=== PATIENT | female | born 1975 ===

== ENCOUNTER 2020-12-12 11:13 | Emergency (ER) | payer OTHER, SELFPAY ==
--- NOTE | ~2020-12-12 | XR_ITS ---
EXAMINATION: XR ELBOW, RIGHT CLINICAL INFORMATION: Pain. Trauma. COMPARISON: None TECHNIQUE: AP, lateral, and oblique views of the right elbow. FINDINGS: Bone alignment is normal. No fracture or dislocation is seen. There is a sclerotic density in the capitellum probably representing a bone island. Joint spaces are normal. There is no joint effusion. There is a small osteophyte at the triceps tendon insertion to the olecranon. XR/XR elbow RT min 3V IMPRESSION: No fracture or dislocation.
--- NOTE | ~2020-12-12 | US_ITS ---
EXAMINATION: US VENOUS WITH DOPPLER UPPER EXTREMITY, RIGHT CLINICAL INFORMATION: Pain and swelling x1 month. COMPARISON: None TECHNIQUE: Ultrasound of the upper extremity is performed using compression sonography and color and pulse Doppler flow with assessment of augmentation of flow. There is also imaging and Doppler assessment of the jugular and subclavian veins. Spectral analysis with color-flow imaging is performed. FINDINGS: Respiratory variation, normal compression, and augmented flow are noted throughout the upper extremity including the axillary, brachial, cubital, and radial and ulnar veins. There is normal flow in the internal jugular and subclavian veins. There is no visible deep or superficial thrombophlebitis. If the patient's symptoms progress, a followup ultrasound in 5 -7 days might be of value to exclude proximal propagation from a nonvisualized distal arm vein. US/US venous duplex UE RT IMPRESSION: No DVT demonstrated in the right arm. No abnormality seen in the areas indicated by the patient.
[2020-12-12 12:11] VITALS: BP 141/78; PULSE 90; RESP 18; TEMP 37; O2SAT 98; BMI 25.0
--- NOTE | 2020-12-12 12:37 | ED_ITS ---
HPI - Extremity Problem General Chief complaint: Extremity Injury, Upper Stated complaint: ARM INFECTION Time Seen by Provider: 12/12/20 12:36 Source: patient Mode of arrival: ambulatory Limitations: no limitations History of Present Illness HPI Narrative: Pleasant 45-year-old female presenting ambulatory via triage with history of migraine headaches, chronic gastritis, celiac disease, thyroid disease who presents ambulatory with complaint of pain to the right inner elbow/forearm area for the past month and a half states she had initial injury at work on October 19, 2019, she works at [employer]. States at that time she had the inner elbow/forearm area on a hard surface had pain and bruising there however due to the ?paperwork? she was not able to follow-up for this injury and yesterday she was helping her move something and felt more pain at the same site and has felt her arm intermittently swelling. There is no numbness or weakness in the hand. No discoloration or rash. No shoulder, neck or headache. No chest pain or shortness of breath. No lower extremity swelling. MD Complaint: extremity pain Onset (ago): month(s) Pain Consistency: intermittent Location: right Severity scale (1-10): 5 Quality: aching Radiation: distal Relieving factors: immobilization Exacerbating factors: nothing Associated symptoms: denies other symptoms Related Data Previous Rx's Medication Instructions Recorded naproxen 500 mg PO BID PRN #21 tab 12/12/20 Allergies Allergy/AdvReac Type Severity Reaction Status Date / Time gluten [GLUTEN] Allergy Unknown UNKNOWN Verified 12/12/20 12:11 Review of Systems Review of Systems: Constitutional: No Weight loss, No Fever, No Chills, No Night Sweats, No Fatigue, No Malaise ENT/Mouth: No Hearing loss, No Ear Pain, No Nasal Congestion, No Sinus Pain, No Hoarseness, No sore throat, No Rhinorrhea, No Swallowing Difficulty Eyes: No Eye Pain, No Swelling, No Redness, No Foreign Body, No Discharge, No Vision Changes Cardiovascular: No Chest Pain, No SOB, No Dyspnea on Exertion, No Orthopnea, No Edema, No Palpitations Respiratory: No Cough, No Sputum, No Wheezing, No Dyspnea Gastrointestinal: No Nausea, No Vomiting, No Diarrhea, No Constipation, No abdominal Pain, No Hematochezia, No Melena Genitourinary: No Dysuria, No Urinary Frequency, No Hematuria, states no concern for ,No Flank Pain, No Urinary Flow Changes, No Hesitancy Musculoskeletal: No joint pain, No Myalgias, No Joint Swelling, as noted per HPI Skin: No Skin Lesions, No rash Neuro: No Weakness, No Numbness, No Paresthesias, No Loss of Consciousness, No Dizziness, No Headache Psych: No Social Issues Heme/Lymph: No Bruising, No Bleeding,No Lymphadenopathy Endocrine: No Polyuria, No Polydipsia, No Temperature Intolerance Yes all other systems are reviewed and are negative Neurologic: Reports Abnormal speech present [facility] Past Medical History Medical History (Updated 12/12/20 @ 14:33 by Shahbaz Lu NP) CD (celiac disease) Gastritis Migraines Sinusitis Social History Social History Advance Directives: Yes Advance Directives Information Provided: Yes Advance Directives on File: No Physical Exam Vital Signs: Vital Signs: Last Vital Signs Temp 98.6 F 12/12/20 12:11 Pulse 90 12/12/20 12:11 Resp 18 12/12/20 12:11 BP 141/78 H 12/12/20 12:11 Pulse Ox 98 12/12/20 12:11 Body Mass Index 25.0 Reviewed Const: General: cooperative and healthy appearing; No acute distress or intoxicated appearing Nutritional Appearance: average body habitus Orientation/consciousness: patient oriented x3 HENMT: Head: Yes normal to inspection Ears: hearing grossly normal bilaterally Eyes: General: appearance normal, both eyes and all related structures Visual Sanderson: normal visual sanderson by confrontation Pupils: Equal, round and reactive pupils present Neck: Neck: Yes normal visual inspection, No no meningeal signs, No positive Brudzinski's sign, No positive Kernig's sign and No tender Thyroid: Thyroid normal Chest: Chest palpation & inspection: normal inspection of the chest Resp: Effort & Inspection: normal respiratory effort Auscultation: clear to auscultation bilaterally Cardio: Jugular venous distension: no JVD Rhythm: regular rhythm Heart sounds: S1 normal heart sound present and S2 normal heart sound present GI: Inspection: Yes normal to inspection Percussion: Yes normal to percussion Auscultation: normal bowel sounds : General: Yes no CVA tenderness Back/Spine/Pelvis: Back: no CVA tenderness Skin: General skin exam: no rashes or lesions noted Neuro: General: patient oriented x3, moves all extremities, Normal light touch and pain sensation, No no meningeal signs, no focal motor deficits, CN's II-XI intact bilaterally and deep tendon reflexes 2+ bilaterally Cranial nerves: Yes CN's II-XII intact bilaterally, Yes Facial sensation intact/muscles of mastication intact and Yes Equal, round and reactive pupils present Cognition (Neuro): normal cognition Speech: Abnormal speech present Gait exam (Neuro): Normal gait present Motor exam (neuro): 5/5 motor strength present throughout and Normal motor muscle tone present throughout Sensory Exam: Normal double simultaneous stimulation for sensation Extrem: General: Yes normal to inspection Course Course Course Narrative: She did show me a picture from initial injury on October 19 patient states there was a large bruise on the inner elbow and forearm area that resolved. In the picture there is ecchymosis area that is about 6 inches almost annular. Currently there is no bruising at the site. She has some mild tpp and pain with certain movements. X-ray rule out subtle fracture, ultrasound rule out upper extremity DVT given the intermittent swelling and the bruising after injury. Otherwise neurovascular intact. Pulses within normal limits. Reevaluation(s) Reevaluation #1: Right upper extremity ultrasound without acute abnormality. Neurovascular intact. Pulses and strength within normal limits. Reflexes within normal limits. Right elbow x-ray no acute abnormality as well. Will start on naproxen follow-up with [facility] and if symptoms continue Orthopedics. MDM - Extremity (Nontraumatic) Imaging Data Right upper extremity ultrasound: Radiologist's impression: [address] [id number] ReportSigned Patient: Leanne Clayton#: [id number]: 1975Acct:[id number]/Sex: 45 / FADM Date: 12/12/20Loc: [facility].EDAttending Dr: Ordering Physician: Shahbaz Lu NP Date of Service: 12/12/20 Procedure(s): US venous duplex UE RT Accession Number(s): [id number] cc: Shahbaz Lu CHIEF PASSENGER SHIP STEWARD/STEWARDESS~ EXAMINATION: US VENOUS WITH DOPPLER UPPER EXTREMITY, RIGHT CLINICAL INFORMATION: Pain and swelling x1 month. COMPARISON: None TECHNIQUE: Ultrasound of the upper extremity is performed using compression sonography and color and pulse Doppler flow with assessment of augmentation of flow. There is also imaging and Doppler assessment of the jugular and subclavian veins. Spectral analysis with color-flow imaging is performed. FINDINGS: Respiratory variation, normal compression, and augmented flow are noted throughout the upper extremity including the axillary, brachial, cubital, and radial and ulnar veins. There is normal flow in the internal jugular and subclavian veins. There is no visible deep or superficial thrombophlebitis. If the patient's symptoms progress, a followup ultrasound in 5 -7 days might be of value to exclude proximal propagation from a nonvisualized distal arm vein. US/US venous duplex UE RT IMPRESSION: No DVT demonstrated in the right arm. No abnormality seen in the areas indicated by the patient. Dictated By:СЕРГЕЙ SANTOS MDSigned By:<Electronically signed by СЕРГЕЙ SANTOS MD in OV>12/12/20 1355 DD/ 1236TD/TT: Landfill Attendant: MIGUEL Right elbow x-ray: Radiologist's impression: Leanne Clayton 45 F [address] [id number] ReportSigned Patient: Leanne ClaytonMR#: [id number]: 1975Acct:[id number]/Sex: 45 / FADM Date: 12/12/20Loc: [facility].EDAttending Dr: Ordering Physician: Shahbaz Lu NP Date of Service: 12/12/20 Procedure(s): XR elbow RT min 3V Accession Number(s): [id number] cc: Shahbaz Lu [employer]IE[employer]GER [employer]EWARD/STEWARDESS~ EXAMINATION: XR ELBOW, RIGHT CLINICAL INFORMATION: Pain. Trauma. COMPARISON: None TECHNIQUE: AP, lateral, and oblique views of the right elbow. FINDINGS: Bone alignment is normal. No fracture or dislocation is seen. There is a sclerotic density in the capitellum probably representing a bone island. Joint spaces are normal. There is no joint effusion. There is a small osteophyte at the triceps tendon insertion to the olecranon. XR/XR elbow RT min 3V IMPRESSION: No fracture or dislocation. Dictated By:NATALIE WHITE MDSigned By:<Electronically signed by NATALIE WHITE MD in OV>12/12/20 1408 DD/ 1236TD/TT: Landfill Attendant: JOURDAN Discharge Plan Discharge Clinical Impression: Muscle strain of right upper arm Qualifiers: Encounter type: initial encounter Qualified Code(s): S46.911A - Strain of unspecified muscle, fascia and tendon at shoulder and upper arm level, right arm, initial encounter Patient Disposition: Home, Self-Care Instructions: Arm Pain (ED) Additional Instructions: Warm compress Gentle stretching You can use Ej wrap for comfort Anti-inflammatory medications such as naproxen as prescribed [facility] with [facility] as discussed Return if any concerns or worsening symptoms Thank you Prescriptions: New naproxen 500 mg tablet 500 mg PO BID PRN (Reason: pain) Qty: 21 RF: 0 Referrals: Marianne Shoemaker MD [Primary Care Provider] - 1 week [facility] [Provider Group] - 2 days
== END 2020-12-12 14:49 | disposition home or self-care (01) ==
PROVIDERS: Emergency Provider Emergency Medicine; PCP Internal Medicine
DX: S46.911A Strain of unspecified muscle, fascia and tendon at shoulder and upper arm level, right arm, initial encounter (principal); W22.09XA Striking against other stationary object, initial encounter; M79.601 Pain in right arm; Y93.9 Activity, unspecified; Y92.512 Supermarket, store or market as the place of occurrence of the external cause; Y99.0 Civilian activity done for income or pay
CPT/HCPCS: 73080; 93971; 99283; 99284

== ENCOUNTER 2021-02-07 13:47 | Outpatient (REF) | payer OTHER, SELFPAY ==
[2021-02-07 15:21] LABS: MANUAL DIFF FLAG SCAN; PLT CLUMP 1; SCAN SMEAR FLAG 1
[2021-02-07 15:24] LABS: Basophils Absolute Auto 0.1 X10*3/uL (0.0-0.2); Basophils Percent Auto 0.7 % (0-2); Eosinophils Absolute Auto 0.2 X10*3/uL (0.0-0.4); Eosinophils Percent Auto 2.5 % (0-4); Hematocrit 36.7 % (37-47); Hemoglobin 10.7 g/dl (12.0-16.0); Imm Gran Abs Auto 0.03 X10*3/uL (0.00-0.03); Imm Gran Pct Auto 0.3 % (0.0-0.4); Lymphocytes Absolute Auto 1.5 X10*3/uL (1.2-4.9); Lymphocytes Percent Auto 16.3 % (20-40); Mean Corpuscular HGB Conc 29.2 g/dl (31.0-35.0); Mean Corpuscular Hemoglobin 22.3 pg (27.0-33.0); Mean Corpuscular Volume 76.5 fL (80-98); Monocytes Absolute Auto 0.8 X10*3/uL (0.1-1.2); Monocytes Percent Auto 8.6 % (2-11); Neutrophils Absolute Auto 6.6 X10*3/uL (2.0-8.3); Neutrophils Percent Auto 71.6 % (45-73); White Blood Count 9.2 X10*3/uL (4.8-10.8)
[2021-02-07 15:39] LABS: Alanine Aminotransferase 11 U/L (0-31); Albumin Level 4.5 g/dL (3.5-5.0); Alkaline Phosphatase 97 U/L (39-117); Anion Gap 14 (12-20); Aspartate Amino Transferase 15 U/L (5-31); Bilirubin Total 0.2 mg/dL (0.0-1.0); Blood Urea Nitrogen 15 mg/dL (9-16); Calcium 9.3 mg/dL (8.4-10.2); Carbon Dioxide 25 mmol/L (22-29); Chloride 107 mmol/L (96-108); Cholesterol 169 mg/dL; Estimated Glomerular Filt Rate > 60; Glucose Fasting 94 mg/dL (60-99); HDL Cholesterol 58 mg/dL; LDL Cholesterol Calculated 87 mg/dl; Potassium 4.6 mmol/L (3.3-5.1); Sodium 141 mmol/L (135-145); Total Protein 7.4 g/dL (6.5-8.0); Triglycerides 123 mg/dL
[2021-02-07 16:02] LABS: Thyroid Stimulating Hormone 4.34 uIU/mL (0.32-4.0)
[2021-02-07 16:04] LABS: SLIDE REVIEW VERIFIED
== END 2021-02-07 13:48 | disposition home or self-care (01) ==
LOC: HO.LAB 13:47
PROVIDERS: PCP Internal Medicine; Visit Provider Internal Medicine
DX: E66.3 Overweight (principal); E06.3 Autoimmune thyroiditis
CPT/HCPCS: 36415; 80053; 80061; 84443; 85025

== ENCOUNTER 2021-03-02 09:32 | Outpatient (REF) | payer OTHER, SELFPAY ==
--- NOTE | ~2021-03-02 | MM_ITS ---
EXAMINATION: MM SCREENING DIGITAL BREAST TOMOSYNTHESIS, BILATERAL CLINICAL INFORMATION: Screening. Asymptomatic. The lifetime risk of breast cancer based on the Tyrer-Cuzick Model is 19%. COMPARISON: Mammography: 03/30/2015 [facility] TECHNIQUE: Digital breast tomosynthesis is performed in both the craniocaudal and mediolateral oblique views along with computer-aided detection (CAD). Synthesized 2D images are generated from the tomosynthesis. FINDINGS: There are scattered areas of fibroglandular density (ACR BI-RADS breast composition Category b). There are no significant masses, abnormal calcifications, or other abnormalities. Parenchymal pattern is similar to prior outside exam. The axilla and skin contours are unremarkable. MM/MM tomosynthesis screening BI IMPRESSION: No mammographic evidence of malignancy. ASSESSMENT: BI-RADS 1: Negative RECOMMENDATION: Routine annual mammography screening. This patient's information was entered into a reminder system with a target due date for their next mammogram.
== END 2021-03-02 09:33 | disposition home or self-care (01) ==
LOC: HO.MAMMO 09:32
PROVIDERS: Visit Provider Internal Medicine
DX: Z12.31 Encounter for screening mammogram for malignant neoplasm of breast (principal)
CPT/HCPCS: 77063; 77067

== ENCOUNTER 2021-05-17 09:02 | Outpatient (REF) | payer OTHER, SELFPAY ==
[2021-05-18 00:47] LABS: CT PCR NOT DETECTED (Not Detect.); NG PCR NOT DETECTED (Not Detect.)
[2021-05-18 09:02] LABS: BV Int Neg Control Negative (Negative); BV Int Pos Control Positive (Positive)
[2021-05-20 00:33] LABS: HPV mRNA E6/E7 rflx Not Detected (Not Detected)
== END 2021-05-17 09:03 | disposition home or self-care (01) ==
LOC: HO.LAB 09:02
PROVIDERS: PCP Internal Medicine; Visit Provider Advanced Practice Midwife
DX: Z01.411 Encounter for gynecological examination (general) (routine) with abnormal findings (principal); Z11.51 Encounter for screening for human papillomavirus (HPV); N84.1 Polyp of cervix uteri
CPT/HCPCS: 87480; 87491; 87510; 87591; 87624; 87660; 88142

== ENCOUNTER 2021-06-07 12:39 | Outpatient (REF) | payer OTHER, SELFPAY ==
--- NOTE | ~2021-06-07 | XR_ITS ---
EXAMINATION: XR KNEE, RIGHT CLINICAL INFORMATION: Pain right knee. COMPARISON: None TECHNIQUE: Four views of the right knee. FINDINGS: Bones and soft tissues are normal. No fracture or joint effusion. Alignment is anatomic. Joint spaces are well maintained. No abnormal soft tissue calcification. XR/XR knee RT 3V IMPRESSION: Unremarkable right knee exam.
== END 2021-06-07 12:40 | disposition home or self-care (01) ==
LOC: HO.LAB 12:39
PROVIDERS: Absent Provider Internal Medicine; PCP Internal Medicine; Visit Provider Obstetrics & Gynecology
DX: E06.3 Autoimmune thyroiditis (principal); N84.1 Polyp of cervix uteri; M25.561 Pain in right knee
CPT/HCPCS: 36415; 57500; 73562; 84443; 88305

== ENCOUNTER → 2021-06-21 11:59 | Outpatient (BNVA) | payer OTHER, SELFPAY | PROVIDERS: PCP Internal Medicine; Visit Provider Obstetrics & Gynecology ==

== ENCOUNTER 2021-07-05 11:28 | Emergency (ER) | payer OTHER, SELFPAY ==
[2021-07-05 12:01] VITALS: BP 135/82; PULSE 89; RESP 16; TEMP 36.2; O2SAT 98; BMI 25.8
--- NOTE | 2021-07-05 13:02 | ED.URI ---
HPI - URI/Sore Throat General Chief Complaint: Ear Problems Stated Complaint: ear pain Time Seen by Provider: 07/05/21 12:45 Source: patient Mode of arrival: ambulatory Limitations: no limitations History of Present Illness HPI Narrative: 46-year-old female presenting to the ED with URI symptoms that started on Saturday worse today she reports nasal congestion/rhinorrhea, left ear pain radiating to her throat down her left side of her neck. Denies recent travel or sick contacts. 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 Denies any measured fevers, chills, dizziness, headaches, neck pain/stiffness, trouble swallowing or breathing, chest pain or shortness of breath, dyspnea exertion, orthopnea, palpitations, loss of smell or taste, nausea/vomiting/diarrhea or constipation, abdominal pain, back pain, dysuria, hematuria, rashes, weakness or any other symptoms complaints or concerns at this time. MD elicited complaint: sore throat, rhinorrhea, nasal congestion and other (And left ear pain) Onset (ago): day(s) (Three days worse today) Consistency: constant and progressively worsening Severity: moderate Description of mucous: clear, watery and yellow Able to tolerate fluids by mouth: Yes Exacerbating factors: swallowing Relieving factors: nothing Associated symptoms: rhinorrhea, nasal congestion, sore throat and ear pain Treatments prior to arrival: none Related Data Home Medications Medication Instructions Recorded Confirmed cetirizine 10 mg tablet 10 mg PO DAILY PRN 06/07/21 06/07/21 Previous Rx's Medication Instructions Recorded ciprofloxacin 0.3 %-dexamethasone 4 drp OTIC (EARS) BID 7 Days #7.5 06/07/21 0.1 % ear drops,suspension ml (Ciprodex) topiramate 25 mg tablet 25 mg PO BEDTIME 90 Days #90 tab 06/07/21 acetaminophen 500 mg tablet 1,000 mg PO QID PRN #14 tab 07/05/21 (Tylenol Extra Strength) amoxicillin 875 mg-potassium 1 tab PO BID 10 Days #20 tab 07/05/21 clavulanate 125 mg tablet (Augmentin) dexamethasone 6 mg tablet 6 mg PO ONCE #2 tab 07/05/21 (Decadron) ibuprofen 800 mg tablet 800 mg PO Q8H PRN #14 tab 07/05/21 Allergies Allergy/AdvReac Type Severity Reaction Status Date / Time gluten [GLUTEN] Allergy Intermediate Diarrhea Verified 06/07/21 13:44 Review of Systems Review of Systems: Constitutional : No Weight loss, No Fever, No Chills, No Night Sweats, No Fatigue, No Malaise ENT/Mouth : Positive sore throat/left ear pain/rhinorrhea/nasal congestion, No Hearing loss, No Sinus Pain, No Hoarseness, No Swallowing Difficulty Eyes: No Eye Pain, No Swelling, No Redness, No Foreign Body, No Discharge, No Vision Changes Cardiovascular : No Chest Pain, No SOB, No Dyspnea on Exertion, No Orthopnea, No Edema, No Palpitations Respiratory : No Cough, No Sputum, No Wheezing, No Smoke Exposure, No Dyspnea Gastrointestinal : No Nausea, No Vomiting, No Diarrhea, No Constipation, No abdominal Pain, No Hematochezia, No Melena Genitourinary : no irregular bleeding, No Dysuria, No Urinary Frequency, No Hematuria, No Urinary Incontinence, No Urgency, No Flank Pain, No Urinary Flow Changes, No Hesitancy Musculoskeletal : No joint pain, No Myalgias, No Joint Swelling Skin : No Skin Lesions, No rash Neuro : No Weakness, No Numbness, No Paresthesias, No Loss of Consciousness, No Dizziness, No Headache Psych : No Anxiety/Panic, No Depression, No SI/HI/AH/VH, No Social Issues, Heme/Lymph: No Bruising, No Bleeding,No Lymphadenopathy Endocrine : No Polyuria, No Polydipsia, No Temperature Intolerance Yes all other systems are reviewed and are negative [facility] Past Medical History Attestation statement: The following information was validated with the patient. Medical History Autoimmune thyroiditis CD (celiac disease) Gastritis Left ear pain Migraines Overweight Right knee pain Sinusitis Surgical History H/O abdominoplasty Family History Family History Mother No problems noted. Father Lung cancer Social History Social History Housing: House Alcohol intake: never Patient Tobacco Use Status: Never used Tobacco e-Cigarette/Vaping Use: Never Used Second Hand Smoke Exposure: No Advance Directives: No service: No Current occupational status: employed Physical Exam Vital Signs: Vital Signs: Last Vital Signs Temp 97.2 F 07/05/21 12:01 Pulse 89 07/05/21 12:01 Resp 16 07/05/21 12:01 BP 135/82 07/05/21 12:01 Pulse Ox 98 07/05/21 12:01 Body Mass Index 25.8 vital signs have been reviewed as normal and appeared to be correct. Blood pressure normal. Heart rate normal. Respiration rate normal. Temperature normal. Oxygen saturation normal. Appearance: Alert. Oriented X3. No acute distress. Head: Normal external exam. Normocephalic. Atraumatic. Eyes: PERRLA. EOMI. Conjunctiva and sclera normal. Eyelids normal. ENT: EAC normal. TM's Normal. Posterior pharynx mildly erythematous. Uvula midline. Moist mucous membranes. No trismus noted. No drooling noted. No muffled voice noted. No stridor noted. Tolerating secretions well. Neck: Normal inspection. Neck supple. FROM. Anterior cervical chain lymphadenopathy noted. No abnormal lymph nodes noted. Thyroid Normal. No meningeal signs. No neck mass noted. CVS: Normal heart rate and rhythm. Heart sound normal. Pulses normal throughout. No murmurs/rales/gallops. Respiratory: No respiratory distress. Painless inspiration. Breath sounds normal. No wheezes/rales/rhonchi noted. Chest nontender. No accessory muscle usage noted or decreased air movement noted. Back: Full range of motion noted. No rashes/lesion/induration/fluctuance or signs of infection noted. Skin: Skin warm and dry. Normal skin color. Normal skin turgor. No rashes/lesions/lacerations noted. Extremities: Extremities exhibit normal range of motion. Extremities nontender. Neuro: Oriented X 3. No motor deficit. No sensory deficit. Reflexes normal. Normal steady gait. No focal neuro deficits noted. Vascular: + radial pulses Course Course Course Narrative: 46-year-old female presenting to the ED with complaints of URI symptoms that started Saturday worse today that include nasal congestion/rhinorrhea left ear pain radiating to her throat/down her left side of her neck. On exam patient has a normal exam except for mild anterior cervical lymphadenopathy and posterior pharynx is mildly erythematous. No exudate is noted. Uvula is midline. No trismus/drooling/stridor noted. Patient is tolerating secretions well. Therefore at this time a rapid strep and COVID/RSV/flu swab was obtained. Will DC home with antibiotics and symptomatic treatment along with instructions return if any new or worsening symptoms to follow up with primary care provider. Along with instructions to self isolate for at least 7-10 days will give her work know as well. I will call her with negative or positive results within 2-4 hours today. Patient understands agrees with this plan. MDM - URI/Sore Throat Medical Records Attestation: I reviewed the patient's medical records. Lab Data Attestation: I reviewed the patient's lab results. Discharge Plan Discharge Clinical Impression: Upper respiratory infection Patient Disposition: Home, Self-Care Instructions: Upper Respiratory Infection (ED) Additional Instructions: Based on your symptoms and history we have sent a COVID-19. Although your RESULT IS PENDING at this time. RESULTS should return within 2-4 hours. At this time you will be contacted with either NEGATIVE OR POSITIVE results. -Please wait until we contact you for your results. At this time you will be okay for discharge. Please plan for self quarantine for up to 14 days. Do not expose yourself to others. You may not go to work. If testing does come back negative you may return to activities as long as you are no longer having any symptoms for at least 3 days. Please continue to follow cold instructions and wash your hands frequently. You may take Tylenol as directed on the bottle for pain or fever. Patient seen in the emergency department on 07/05/2021 and should be excused from work until negative test results AND until 72 hours without any symptoms AND at least 10 days have passed since symptoms first appeared or since last exposure to COVID-19 positive patient CDC Guidelines for home isolation: - Stay away from others - WEAR A MASK if you are sick AND STAY HOME - Cover your mouth and nose with a tissue when you cough or sneeze. Dispose of tissues in a lined trash can and wash your hands immediately with soap and water for at least 20 seconds. If soap and water are not available, clean hands with alcohol-based hand assembler trim that contains at least 60% alcohol. - Clean your hands often with soap and water for at least 20 seconds - Avoid touching your eyes, nose and mouth with unwashed hands - Do not share dishes, drinking glasses, cups, eating utensils, towels, or bedding with other people in your home. After using these items, wash them thoroughly with soap and water or put in the mellowing machine operator. - Clean high-touch surfaces in your isolation area ( sick room and bathroom) every day; let a caregiver clean and disinfect high-touch surfaces in other areas of the home. Clean the area or item with soap and water or another detergent if it is dirty. Then, use a household disinfectant. - Limit contact with pets and animals: If you must care for a pet, wash your hands before and after interacting with them). Prescriptions: New amoxicillin-pot clavulanate [Augmentin] 875-125 mg tablet 1 tab PO BID 10 Days Qty: 20 RF: 0 dexamethasone [Decadron] 6 mg tablet 6 mg PO ONCE Qty: 2 RF: 0 ibuprofen 800 mg tablet 800 mg PO Q8H PRN (Reason: pain) Qty: 14 RF: 0 acetaminophen [Tylenol Extra Strength] 500 mg tablet 1,000 mg PO QID PRN (Reason: fever or pain) Qty: 14 RF: 0 No Action cetirizine 10 mg tablet 10 mg PO DAILY PRNRF: 0 topiramate 25 mg tablet 25 mg PO BEDTIME 90 Days Qty: 90 RF: 0 ciprofloxacin-dexamethasone [Ciprodex] 0.3-0.1 % drops,suspension 4 drp otic (ears) BID 7 Days Qty: 7.5 RF: 0 Referrals: Marianne Shoemaker MD [Primary Care Provider] - 2 days Stand Alone Forms: Work/School Release Print Language: Hebrew
[2021-07-05 13:31] LABS: IDNOW Serial# 9DD0AD1C; Strep A Nucleic Acid Negative (Negative)
[2021-07-05 14:19] LABS: Influenza A PCR NEGATIVE (Negative); Influenza B PCR NEGATIVE (Negative); Resp Syncy Virus RNA Qual PCR NEGATIVE (Negative); SARS COV2 PCR INHOUSE NEGATIVE (Negative)
== END 2021-07-05 13:38 | disposition home or self-care (01) ==
PROVIDERS: Physician Assistant Medical; Emergency Provider Emergency Medicine; PCP Internal Medicine
DX: J06.9 Acute upper respiratory infection, unspecified (principal); Z79.899 Other long term (current) drug therapy; Z20.822 Contact with and (suspected) exposure to COVID-19
CPT/HCPCS: 0241U; 36415; 87651; 99283

== ENCOUNTER 2021-07-16 14:59 | Emergency (ER) | payer OTHER, SELFPAY ==
--- NOTE | ~2021-07-16 | XR_ITS ---
EXAMINATION: XR WRIST, RIGHT CLINICAL INFORMATION: Wrist injury. COMPARISON: None TECHNIQUE: PA, lateral, and oblique views of the right wrist. FINDINGS: No displaced fracture. No dislocation. Normal carpal alignment. No joint space narrowing or marginal osteophytes. No osseous erosion. No abnormal soft tissue calcification. XR/XR wrist RT 2V IMPRESSION: Unremarkable examination.
[2021-07-16 16:13] VITALS: BP 109/78; PULSE 82; RESP 18; TEMP 37.1; O2SAT 99; BMI 26.8
--- NOTE | 2021-07-16 18:00 | ED_ITS ---
HPI - Extremity Problem General Chief complaint: Extremity Injury, Upper Stated complaint: work inj Time Seen by Provider: 07/16/21 18:00 Source: patient Mode of arrival: ambulatory Limitations: no limitations and language barrier History of Present Illness HPI Narrative: 46-year-old female presents to the ER with right wrist pain after she hit it against the box at work. She works for [employer]. She had noticed some swelling that occurred right away after the injury. She has pain with movement of her wrist. She denies numbness or tingling. She is right-hand dominant. She reports there is a bump in her wrist and she has pain with any movement of her wrist. MD Complaint: joint paint Onset (ago): hour(s) Pain Consistency: constant Location: right and upper extremity Severity scale (1-10): 7 Quality: aching Radiation: none Relieving factors: immobilization Exacerbating factors: range of motion and palpation Associated symptoms: denies other symptoms Related Data Home Medications Medication Instructions Recorded Confirmed cetirizine 10 mg tablet 10 mg PO DAILY PRN 06/07/21 06/07/21 Previous Rx's Medication Instructions Recorded ciprofloxacin 0.3 %-dexamethasone 4 drp OTIC (EARS) BID 7 Days #7.5 06/07/21 0.1 % ear drops,suspension ml (Ciprodex) topiramate 25 mg tablet 25 mg PO BEDTIME 90 Days #90 tab 06/07/21 acetaminophen 500 mg tablet 1,000 mg PO QID PRN #14 tab 07/05/21 (Tylenol Extra Strength) amoxicillin 875 mg-potassium 1 tab PO BID 10 Days #20 tab 07/05/21 clavulanate 125 mg tablet (Augmentin) dexamethasone 6 mg tablet 6 mg PO ONCE #2 tab 07/05/21 (Decadron) ibuprofen 800 mg tablet 800 mg PO Q8H PRN #14 tab 07/05/21 ibuprofen 600 mg tablet 600 mg PO Q8H PRN #20 tab 07/16/21 Allergies Allergy/AdvReac Type Severity Reaction Status Date / Time gluten [GLUTEN] Allergy Intermediate Diarrhea Verified 07/16/21 16:13 Review of Systems Review of Systems: Constitutional: No Fever, No Chills Cardiovascular: No Chest Pain, No SOB Gastrointestinal: No Nausea, No Vomiting Musculoskeletal: + joint pain, No Myalgias Skin: No Skin Lesions, No rash Neuro: No Weakness, No Numbness Psych: + Anxiety/Panic Heme/Lymph: No Bruising, No Lymphadenopathy PMFSH Past Medical History Medical History Autoimmune thyroiditis CD (celiac disease) Gastritis Left ear pain Migraines Overweight Right knee pain Sinusitis Surgical History H/O abdominoplasty Family History Family History Mother No problems noted. Father Lung cancer Social History Social History Housing: House Alcohol intake: never Patient Tobacco Use Status: Never used Tobacco e-Cigarette/Vaping Use: Never Used Second Hand Smoke Exposure: No Advance Directives: No Advance Directives Information Provided: No service: No Current occupational status: employed Physical Exam Vital Signs: Vital Signs: Last Vital Signs Temp 98.7 F 07/16/21 16:13 Pulse 82 07/16/21 16:13 Resp 18 07/16/21 16:13 BP 109/78 07/16/21 16:13 Pulse Ox 99 07/16/21 16:13 Body Mass Index 26.8 Appearance: Alert. Oriented X3. No acute distress. HEENT: normal inspection CVS: Normal heart rate and rhythm. Pulses normal. Respiratory: No respiratory distress. Skin: Skin warm and dry. Normal skin color. Normal skin turgor. No rashes. Extremities: Right wrist held in moderate flexion. Palpable bony prominence in the middle of the dorsal wrist with tenderness. No gross deformity. Wrist joint is tender throughout. She is able to make a fist and can move all fingers she has a 2+ radial pulse. She has good cap refill. Pain worse with hyperextension of the right hand Neuro: Oriented X 3. No motor deficit. No sensory deficit. Course Course Course Narrative: 46-year-old female presenting to the ER with right wrist pain after mild blunt trauma at work. X-ray was reviewed and does not show any acute fractures. Probable contusion as cause of pain and injury. Given her pain with range of motion and tenderness on exam all placed in a velcro wrist splint and have her follow-up with orthopedics for further evaluation. She is stable for discharge. Critical Care Time Critical Care Time Critical Care Time: No Discharge Plan Discharge Clinical Impression: Acute wrist pain Qualifiers: Laterality: right Qualified Code(s): M25.531 - Pain in right wrist Patient Disposition: Home, Self-Care Instructions: Wrist Injury (ED) Additional Instructions: Your x-ray today was normal. Recommend wearing the provided wrist splint until further evaluation by Orthopedics. Use ice several times a day to the area as needed for pain and swelling. Take the prescribed anti-inflammatory medication as needed for pain. If you develop new or worsening symptoms call 911 or come back to the ER for further evaluation. Prescriptions: New ibuprofen 600 mg tablet 600 mg PO Q8H PRN (Reason: pain) Qty: 20 RF: 0 No Action amoxicillin-pot clavulanate [Augmentin] 875-125 mg tablet 1 tab PO BID 10 Days Qty: 20 RF: 0 dexamethasone [Decadron] 6 mg tablet 6 mg PO ONCE Qty: 2 RF: 0 ibuprofen 800 mg tablet 800 mg PO Q8H PRN (Reason: pain) Qty: 14 RF: 0 acetaminophen [Tylenol Extra Strength] 500 mg tablet 1,000 mg PO QID PRN (Reason: fever or pain) Qty: 14 RF: 0 cetirizine 10 mg tablet 10 mg PO DAILY PRNRF: 0 topiramate 25 mg tablet 25 mg PO BEDTIME 90 Days Qty: 90 RF: 0 ciprofloxacin-dexamethasone [Ciprodex] 0.3-0.1 % drops,suspension 4 drp otic (ears) BID 7 Days Qty: 7.5 RF: 0 Referrals: Kiara Howell PA-C [Physician Program Director/Traffic Director] - 2 days (Right wrist injury.) [facility] [Provider Group] - 2 days Stand Alone Forms: Work/School Release
== END 2021-07-16 18:29 | disposition home or self-care (01) ==
PROVIDERS: Emergency Provider Emergency Medicine Emergency Medical Services; PCP Internal Medicine
DX: M25.531 Pain in right wrist (principal); M25.431 Effusion, right wrist; Z79.899 Other long term (current) drug therapy
CPT/HCPCS: 73100; 99283

== ENCOUNTER → 2021-07-21 14:37 | Outpatient (BNVA) | payer OTHER, SELFPAY | PROVIDERS: PCP Internal Medicine; Visit Provider Physician Assistant | DX: S69.91XA Unspecified injury of right wrist, hand and finger(s), initial encounter (principal); X58.XXXA Exposure to other specified factors, initial encounter; M67.431 Ganglion, right wrist | CPT/HCPCS: 99203 ==

== ENCOUNTER → 2021-07-26 11:20 | Outpatient (BNVA) | payer OTHER, SELFPAY | PROVIDERS: PCP Internal Medicine; Visit Provider Physician Assistant | DX: S69.91XA Unspecified injury of right wrist, hand and finger(s), initial encounter (principal); X58.XXXA Exposure to other specified factors, initial encounter | CPT/HCPCS: 73200; 99214 ==

== ENCOUNTER → 2021-08-01 10:18 | Outpatient (BNVA) | payer OTHER, SELFPAY | PROVIDERS: PCP Internal Medicine; Visit Provider Physician Assistant | DX: S63.501A Unspecified sprain of right wrist, initial encounter (principal); X50.1XXA Overexertion from prolonged static or awkward postures, initial encounter; Y93.89 Activity, other specified; Y92.69 Other specified industrial and construction area as the place of occurrence of the external cause; Y99.0 Civilian activity done for income or pay; E06.3 Autoimmune thyroiditis; E66.3 Overweight; Z68.26 Body mass index [BMI] 26.0-26.9, adult; J30.1 Allergic rhinitis due to pollen | CPT/HCPCS: 99202 ==

== ENCOUNTER → 2021-08-15 09:08 | Outpatient (BNVA) | payer OTHER, SELFPAY | PROVIDERS: PCP Internal Medicine; Visit Provider Physician Assistant | DX: S63.501A Unspecified sprain of right wrist, initial encounter (principal) | CPT/HCPCS: 99212 ==

== ENCOUNTER 2021-09-13 11:55 | Outpatient (REF) | payer OTHER, SELFPAY ==
[2021-09-13 12:13] LABS: MANUAL DIFF FLAG NO
[2021-09-13 12:57] LABS: Basophils Absolute Auto 0.1 X10*3/uL (0.0-0.2); Basophils Percent Auto 0.5 % (0-2); Eosinophils Absolute Auto 0.4 X10*3/uL (0.0-0.4); Eosinophils Percent Auto 3.8 % (0-4); Hemoglobin 9.9 g/dl (12.0-16.0); Imm Gran Abs Auto 0.04 X10*3/uL (0.00-0.03); Imm Gran Pct Auto 0.4 % (0.0-0.4); Lymphocytes Absolute Auto 1.6 X10*3/uL (1.2-4.9); Lymphocytes Percent Auto 16.1 % (20-40); Mean Corpuscular HGB Conc 29.1 g/dl (31.0-35.0); Mean Corpuscular Hemoglobin 20.8 pg (27.0-33.0); Mean Corpuscular Volume 71.4 fL (80.0-98.0); Mean Platelet Volume 9.5 fL (9.4-12.3); Monocytes Absolute Auto 0.9 X10*3/uL (0.1-1.2); Monocytes Percent Auto 8.9 % (2-11); Neutrophils Absolute Auto 6.9 x10*3/uL (2.0-8.3); Neutrophils Percent Auto 70.3 % (45-73); Platelet Count 429 X10*3/uL (160-400); Red Blood Count 4.76 X10*6/uL (4.20-5.50); Red Cell Distribution Width 16.5 % (11.0-16.0); White Blood Count 9.8 X10*3/uL (4.8-10.8)
[2021-09-13 13:17] LABS: Iron 21 mcg/dL (30-160); Percent Iron Saturation 5 % (15-50); Total Iron Binding Capacity 455 mcg/dL (228-428); Unsaturated Iron Binding 434 ug/dL
[2021-09-13 13:38] LABS: Thyroid Stimulating Hormone 3.85 uIU/mL (0.32-4.0)
[2021-09-18 14:51] LABS: Vitamin D 25-OH, D2 <4 ng/mL; Vitamin D 25-OH, D3 20 ng/mL; Vitamin D 25-OH, Total 20 ng/mL (30-100)
== END 2021-09-13 11:56 | disposition home or self-care (01) ==
LOC: HO.LAB 11:55
PROVIDERS: PCP Internal Medicine; Visit Provider Internal Medicine
DX: D64.9 Anemia, unspecified (principal); E55.9 Vitamin D deficiency, unspecified; E06.3 Autoimmune thyroiditis
CPT/HCPCS: 36415; 82306; 83540; 84443; 85025

== ENCOUNTER → 2021-09-15 13:01 | Outpatient (BNVA) | payer OTHER, SELFPAY | PROVIDERS: PCP Internal Medicine; Visit Provider Physician Assistant | DX: S63.501D Unspecified sprain of right wrist, subsequent encounter (principal) | CPT/HCPCS: 99212 ==

== ENCOUNTER 2021-09-19 10:05 | Outpatient (REF) | payer OTHER, SELFPAY | END 2021-09-19 10:06 | disposition home or self-care (01) | LOC: HO.HOSX 10:05 | PROVIDERS: Visit Provider Orthopaedic Surgery | DX: Z13.89 Encounter for screening for other disorder (principal) ==

== ENCOUNTER → 2021-10-24 11:17 | Outpatient (BNVA) | payer OTHER, SELFPAY | PROVIDERS: Visit Provider Orthopaedic Surgery ==

== ENCOUNTER 2021-11-01 | Outpatient (REF) | payer OTHER, SELFPAY ==
--- NOTE | ~2021-11-01 | XR_ITS ---
EXAMINATION: RIGHT WRIST. CLINICAL INFORMATION: Pain in right wrist. COMPARISON: None TECHNIQUE: AP views of both wrists and oblique and lateral view right wrist. FINDINGS: Right wrist: There is no visible fracture, dislocation. The radioulnar carpal joint space is maintained normal. There is mild widening of scapholunate joint. No acute fracture or lytic process seen. The soft tissues are normal. AP view of the left wrist is unremarkable. XR/XR wrist RT w scaphoid IMPRESSION: Mild widening of the scapholunate joint right wrist suggestive of ligament tear or contusion. There is no fracture or dislocation seen involving right wrist. The left AP wrist 1 view is unremarkable.
== END 2021-11-01 00:01 | disposition home or self-care (01) ==
LOC: CF
PROVIDERS: Visit Provider Orthopaedic Surgery
DX: M25.531 Pain in right wrist (principal); M77.8 Other enthesopathies, not elsewhere classified
CPT/HCPCS: 73110

== ENCOUNTER → 2021-11-01 12:15 | Outpatient (BNVA) | payer OTHER, SELFPAY | PROVIDERS: Visit Provider Orthopaedic Surgery | DX: M25.531 Pain in right wrist (principal); M77.8 Other enthesopathies, not elsewhere classified | CPT/HCPCS: 20550; 73110; 99202; J1100 ==

== ENCOUNTER → 2021-12-06 13:23 | Outpatient (BNVA) | payer OTHER, SELFPAY | PROVIDERS: Visit Provider Orthopaedic Surgery | DX: M25.531 Pain in right wrist (principal); M77.8 Other enthesopathies, not elsewhere classified; M67.431 Ganglion, right wrist; K90.0 Celiac disease; Z91.02 Food additives allergy status | CPT/HCPCS: 99212 ==

== ENCOUNTER → 2021-12-13 09:15 | Outpatient (BNVA) | payer OTHER, SELFPAY | PROVIDERS: Visit Provider Orthopaedic Surgery | DX: M67.439 Ganglion, unspecified wrist (principal) | CPT/HCPCS: 20612; 99212 ==

== ENCOUNTER → 2022-01-10 14:48 | Outpatient (BNVA) | payer OTHER, SELFPAY | PROVIDERS: Visit Provider Orthopaedic Surgery | DX: M67.439 Ganglion, unspecified wrist (principal); M25.531 Pain in right wrist | CPT/HCPCS: 99212 ==

== ENCOUNTER 2022-09-11 13:27 | Outpatient (REF) | payer OTHER, SELFPAY ==
[2022-09-11 13:50] LABS: MANUAL DIFF FLAG NO
[2022-09-11 14:04] LABS: Basophils Absolute Auto 0.1 X10*3/uL (0.0-0.2); Basophils Percent Auto 0.7 % (0-2); Eosinophils Absolute Auto 0.3 X10*3/uL (0.0-0.4); Eosinophils Percent Auto 2.6 % (0-4); Hematocrit 32.2 % (37.0-47.0); Imm Gran Abs Auto 0.04 X10*3/uL (0.00-0.03); Imm Gran Pct Auto 0.4 % (0.0-0.4); Lymphocytes Absolute Auto 1.6 X10*3/uL (1.2-4.9); Lymphocytes Percent Auto 15.9 % (20-40); Mean Corpuscular Hemoglobin 18.9 pg (27.0-33.0); Mean Corpuscular Volume 67.5 fL (80.0-98.0); Mean Platelet Volume 9.2 fL (9.4-12.3); Monocytes Absolute Auto 0.9 X10*3/uL (0.1-1.2); Monocytes Percent Auto 9.5 % (2-11); Neutrophils Absolute Auto 6.9 x10*3/uL (2.0-8.3); Neutrophils Percent Auto 70.9 % (45-73); Platelet Count 441 X10*3/uL (160-400); Red Blood Count 4.77 X10*6/uL (4.20-5.50); Red Cell Distribution Width 17.2 % (11.0-16.0); White Blood Count 9.7 X10*3/uL (4.8-10.8)
[2022-09-11 15:20] LABS: Alanine Aminotransferase 21 U/L (0-31); Albumin Level 4.7 g/dL (3.5-5.0); Alkaline Phosphatase 88 U/L (39-117); Anion Gap 11 (12-20); Aspartate Amino Transferase 18 U/L (5-31); Bilirubin Total 0.4 mg/dL (0.0-1.0); Blood Urea Nitrogen 9 mg/dL (9-16); Calcium 9.3 mg/dL (8.4-10.2); Carbon Dioxide 26 mmol/L (22-29); Chloride 106 mmol/L (96-108); Estimated Glomerular Filt Rate > 60; Glucose Random 101 mg/dL (60-115); Iron 16 mcg/dL (30-160); Percent Iron Saturation 4 % (15-50); Potassium 4.2 mmol/L (3.3-5.1); Sodium 139 mmol/L (135-145); Thyroid Stimulating Hormone 4.09 uIU/mL (0.32-4.0); Total Iron Binding Capacity 415 mcg/dL (228-428); Total Protein 7.6 g/dL (6.5-8.0); Unsaturated Iron Binding 399 ug/dL
== END 2022-09-11 13:28 | disposition home or self-care (01) ==
LOC: HO.LAB 13:27
PROVIDERS: PCP Internal Medicine; Visit Provider Internal Medicine
DX: E55.9 Vitamin D deficiency, unspecified (principal); E06.3 Autoimmune thyroiditis; D64.9 Anemia, unspecified; E66.3 Overweight
CPT/HCPCS: 36415; 80053; 82306; 83540; 84443; 85025

== ENCOUNTER 2022-10-25 08:52 | Outpatient (REF) | payer OTHER, SELFPAY ==
[2022-10-25 15:29] LABS: CT PCR NOT DETECTED (Not Detect.); NG PCR NOT DETECTED (Not Detect.)
== END 2022-10-25 08:53 | disposition home or self-care (01) ==
LOC: HO.LNP 08:52
PROVIDERS: PCP Internal Medicine; Visit Provider Obstetrics & Gynecology
DX: Z30.09 Encounter for other general counseling and advice on contraception (principal); N93.9 Abnormal uterine and vaginal bleeding, unspecified
CPT/HCPCS: 0353U; 99212

== ENCOUNTER 2022-11-12 13:55 | Outpatient (REF) | payer OTHER, SELFPAY ==
--- NOTE | ~2022-11-12 | US_ITS ---
EXAMINATION: US PELVIS CLINICAL INFORMATION: Abnormal uterine bleeding. COMPARISON: None TECHNIQUE: Ultrasound of the pelvis is performed using both transabdominal and transvaginal transducers along with Doppler. Transvaginal imaging is performed due to inadequate visualization transabdominally. FINDINGS: Uterus: The uterus is anteverted and retroflexed measuring 8.5 x 4.7 x 7.8 cm. The double wall endometrial thickness is 0.8 mm. The uterus is smooth in contour and has heterogeneous myometrial echogenicity. No visible fibroid. Adnexa: Both ovaries are visualized. There is normal color flow to the adnexa. There is no ovarian torsion. There is no pelvic ascites or fluid collection. Right ovary measures 3.6 x 2.1 x 2.6 cm for a volume of 10.3 mL. A simple cyst is present in the right ovary measuring 1.5 x 1.3 x 1.4 cm. Left ovary measures 2.5 x 1.2 x 2.3 cm for a volume of 3.6 mL and appears normal. Prominent veins/varices are noted in the left adnexa. US/US pelvic and transvaginal IMPRESSION: No significant abnormality is seen. Some prominent veins are present in the left hemipelvis.
== END 2022-11-12 13:56 | disposition home or self-care (01) ==
LOC: HO.US 13:55
PROVIDERS: PCP Internal Medicine; Visit Provider Obstetrics & Gynecology
DX: N93.9 Abnormal uterine and vaginal bleeding, unspecified (principal)
CPT/HCPCS: 76830; 76856

== ENCOUNTER 2022-11-19 11:19 | Outpatient (REF) | payer OTHER, SELFPAY ==
--- NOTE | ~2022-11-19 | MM_ITS ---
EXAMINATION: MM SCREENING DIGITAL BREAST TOMOSYNTHESIS, BILATERAL CLINICAL INFORMATION: Screening. Asymptomatic. The lifetime risk of breast cancer based on the Tyrer-Cuzick Model is 12.8%. COMPARISON: Mammography: March 02, 2021 and studies dating back to January 15, 2008 TECHNIQUE: Digital breast tomosynthesis is performed in both the craniocaudal and mediolateral oblique views along with computer-aided detection (CAD). Synthesized 2D images are generated from the tomosynthesis. FINDINGS: The breasts are heterogeneously dense, which may obscure small masses (ACR BI-RADS breast composition Category c). There are no significant masses, abnormal calcifications, or other abnormalities. MM/MM tomosynthesis screening BI IMPRESSION: No significant changes from prior exam. ASSESSMENT: BI-RADS 1: Negative RECOMMENDATION: Routine annual mammography screening. This patient's information was entered into a reminder system with a target due date for their next mammogram.
== END 2022-11-19 11:20 | disposition home or self-care (01) ==
LOC: HO.MAMMO 11:19
PROVIDERS: PCP Internal Medicine; Visit Provider Obstetrics & Gynecology
DX: Z12.31 Encounter for screening mammogram for malignant neoplasm of breast (principal)
CPT/HCPCS: 77063; 77067

== ENCOUNTER 2022-11-26 10:14 | Outpatient (REF) | payer OTHER, SELFPAY | END 2022-11-26 10:15 | disposition home or self-care (01) | LOC: HO.LNP 10:14 | PROVIDERS: PCP Internal Medicine; Visit Provider Obstetrics & Gynecology | DX: N93.9 Abnormal uterine and vaginal bleeding, unspecified (principal) | CPT/HCPCS: 58100; 81025; 88305 ==

== ENCOUNTER → 2023-02-26 12:29 | Outpatient (BNVA) | payer OTHER, SELFPAY | PROVIDERS: PCP Internal Medicine; Visit Provider Obstetrics & Gynecology | DX: N93.9 Abnormal uterine and vaginal bleeding, unspecified (principal); R79.89 Other specified abnormal findings of blood chemistry; D50.0 Iron deficiency anemia secondary to blood loss (chronic); E55.9 Vitamin D deficiency, unspecified | CPT/HCPCS: 99212 ==

== ENCOUNTER 2023-03-15 10:45 | Day surgery (SDC) | payer OTHER, SELFPAY ==
--- NOTE | 2023-03-14 09:02 | HO.ANESPROP2 ---
Documented by User: Mary Mendoza NP 03/14/23 09:02 HPI - Anesthesia Eval Consult details Narrative: 47yo F for D&C Hysteroscopy, poss Myomectomy/polypectomy PMFSH Active Problems Active Problems: All Active Problems (Updated 02/26/23 @ 12:47 by David Youssef MD) Family planning (Acute) Abnormal uterine bleeding (AUB) (Acute) Dry skin (Acute) TSH elevation (Acute) Physical exam (Acute) Hypovitaminosis D (Acute) Dorsal wrist ganglion (Acute) Right wrist tendinitis (Acute) Right wrist pain (Acute) Seasonal allergies (Acute) Iron deficiency anemia due to chronic blood loss (Acute) Right wrist sprain (Acute) Left ear pain (Acute) Right knee pain (Acute) Migraines (Acute) CD (celiac disease) (Acute) Cervical polyp (Acute) Cervical cancer screening (Acute) Counseling for control, intrauterine device (Acute) Well woman exam with routine gynecological exam (Acute) Overweight (Acute) Autoimmune thyroiditis (Acute) Sinusitis (Acute) Past Medical History Medical History Autoimmune thyroiditis CD (celiac disease) Gastritis Hypovitaminosis D Iron deficiency anemia due to chronic blood loss Left ear pain Migraines Overweight Right knee pain Seasonal allergies Sinusitis Family History Family History Mother No problems noted. 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 Current occupational exposures/hazards: No Cognitive needs: No Hearing needs: No Vision needs: Yes Meds Allergies Allergy/AdvReac Type Severity Reaction Status Date / Time gluten [GLUTEN] Allergy Intermediate Diarrhea Verified 02/26/23 12:33 Exam Exam Date and Time: March 14, [id number] Assessment and Plan Assessment Anesthesia Assessment: Chart Reviewed Documented by User: Xavi Cosme MD 03/15/23 11:31 [facility] Past Medical History Medical History Autoimmune thyroiditis CD (celiac disease) Gastritis Hypovitaminosis D Iron deficiency anemia due to chronic blood loss Left ear pain Migraines Overweight Right knee pain Seasonal allergies Sinusitis Family History Family History Mother No problems noted. 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 Current occupational exposures/hazards: No Cognitive needs: No Hearing needs: No Vision needs: Yes Meds Allergies Allergy/AdvReac Type Severity Reaction Status Date / Time gluten [GLUTEN] Allergy Intermediate Diarrhea Verified 02/26/23 12:33 Exam Airway Mallampati Class: II TM Dist: >3cm Neck ROM: Full Assessment and Plan Assessment Anesthesia Assessment: Anesthesia Plan Discussed Final Anesthetic Review Family History of Problems with Anesthesia: No History of Problems with Anesthesia: No NPO: Yes ASA Class: II Final Preanesthetic Review: No Changes in Pt Med Stat, Meds/Allgs Chart Reviewed, Consent Obtained/Reviewed and Anes Risks/Benef Reviewed Patient Risk: Low Procedure Risk: Low Anesthetic Plan Anesthetic Plan: GA Disposition: Standard PACU
[2023-03-15] VITALS (10 sets, daily range): BP systolic 102–133; BP diastolic 54–78; PULSE 64–104; RESP 16–20; TEMP 36.4–36.7; O2SAT 97–100; BMI 25.0
[2023-03-15 11:14] LABS: Urine Pregnancy NEGATIVE (NEGATIVE)
[2023-03-15 11:16] LABS: UPreg QC Valid YES
[2023-03-15] MEDS: Lactated Ringers 1,000 ML 100 ML IVCONT (11:24)
--- NOTE | 2023-03-15 11:45 | MHC.SHP ---
Pre-Procedural Eval Section A Date of Service: 03/15/23 The patient is an INPATIENT: No Changes since office visit: No Cold of Flu in the past 2 weeks, No New Medical Problems, No Changes in Medication and No Patient answered all questions The History & Physical has been completed within 30 days and I have reviewed it.: Yes Section B Chief Complaint: Abnormal uterine and vaginal bleeding, unspecified Allergies: Allergies Allergy/AdvReac Type Severity Reaction Status Date / Time gluten [GLUTEN] Allergy Intermediate Diarrhea Verified 02/26/23 12:33 Plan Diagnosis/Plan: Unchanged I have reviewed the history and physical and performed a pertinent physical examination on my patient. No changes have occurred unless specified. Time Spent With Patient Time: Total time managing care of this patient today ____ minutes.
--- NOTE | 2023-03-15 12:47 | PM.OP ---
Brief Operative Note Date of Service: 03/15/23 Pre-op diagnosis: Abnormal uterine bleeding, endometrial polyp by pathology Post-op diagnosis: same (Endometrial polyp) Procedure: Hysteroscopy D&C, Polypectomy Surgeon: David Youssef MD Anesthesia: GLMA Was an Hardware Test Engineer used for this Procedure?: No Estimated blood loss (mL): 0 Pathology: other (Endometrial Scrapping. Polyp) Condition: stable Disposition: PACU
--- NOTE | 2023-03-15 12:48 | P.OP_ITS ---
Operative Note Operative Note Date of Service: 03/15/23 Narrative: Preop Diagnosis: Abnormal uterine bleeding, Endometrial polyp by pathology Operation: Diagnostic Hysteroscopy, Dilataion & Curettage and polypectomy Post Op Diagnosis: Endometrial Polyp QBL: Minimal Anesthesia: GLMA Surgeon: David Youssef MD Elastic Attacher Zigzag: None Complication: None Pathology: Endometrial Scrapings, Endometrial polyp Procedure: The patient was put in the dorsal lithotomy position, scrubbed, and draped in the usual manner. A sterile speculum was inserted in the patient's vagina. The anterior lip of the cervix was grasped with a single tooth tenaculum. The cervix was dilated up to 5 mm, then the scope was inserted in the patient's uterus. Inspection revealed endometrial polyp. The Myosure Reach device was used; it was introduced through the operative channel and polypectomy done with no complications. The scope was then taken out from the uterine cavity, sharp curettings was carried on with minimal to moderate amount of tissues retrieved. At the end of the procedure, all instruments were taken out of the patient uterine and vaginal cavity. The single tooth tenaculum was removed and homeostasis was assured using pressure,. The patient tolerated the procedure well and was transferred to the PACU in a stable condition.
[2023-03-15] MEDS: fentaNYL citrate/PF 100 MCG/2 ML VIAL 50 MCG IVPUSH ×2 (13:05→13:20)
[2023-03-15] MEDS: Acetaminophen 325 MG TABLET 650 MG PO (13:06)
[2023-03-15] MEDS: oxyCODONE HCl Immed Release 5 MG TABLET PO (13:07)
== END 2023-03-15 14:10 | disposition home or self-care (01) ==
PROVIDERS: Nurse Practitioner; PCP Internal Medicine; Visit Provider Obstetrics & Gynecology
PROC: 0UDB8ZZ Extraction of Endometrium, Via Natural or Artificial Opening Endoscopic (ICD-10-PCS; CPT 58558; principal; 2023-03-15 12:30)
DX: N93.9 Abnormal uterine and vaginal bleeding, unspecified (principal); K90.0 Celiac disease; K86.81 Exocrine pancreatic insufficiency; E06.3 Autoimmune thyroiditis; R79.89 Other specified abnormal findings of blood chemistry; E55.9 Vitamin D deficiency, unspecified; D50.0 Iron deficiency anemia secondary to blood loss (chronic); J32.9 Chronic sinusitis, unspecified; J30.2 Other seasonal allergic rhinitis; G43.909 Migraine, unspecified, not intractable, without status migrainosus; Z98.890 Other specified postprocedural states
CPT/HCPCS: 58558; 81025; 88305; J1100; J1885; J2250; J2405; J3010

== ENCOUNTER → 2023-04-02 12:49 | Outpatient (BNVA) | payer OTHER, SELFPAY | PROVIDERS: PCP Internal Medicine; Visit Provider Obstetrics & Gynecology | DX: N93.9 Abnormal uterine and vaginal bleeding, unspecified (principal); D64.9 Anemia, unspecified; R94.6 Abnormal results of thyroid function studies; Z98.890 Other specified postprocedural states | CPT/HCPCS: 99212 ==

== ENCOUNTER 2023-08-29 13:16 | Outpatient (AMB) | payer OTHER, SELFPAY ==
--- NOTE | 2023-08-29 13:41 | MHC.OFFVIS ---
Intake Vital Signs 08/29/23 13:42 Height 5 ft 6 in Weight 156 lb BMI 25.2 BP 116/70 Intake Visit Reasons: Mirena Inseertion Tripe Scraper Required: No Information Interpreted: non-clinical & clinical Ash Conveyor Operator: Ash Conveyor Operator Present (Chaparrita FULTON) Accompanied by: Self / Same As Patient Allergies gluten [GLUTEN] Allergy (Intermediate, Verified 08/29/23 13:43) Diarrhea Is last menstrual period known: Yes Last menstrual period: 08/29/23 PFSH Medical History Hypovitaminosis D Seasonal allergies Iron deficiency anemia due to chronic blood loss Left ear pain Right knee pain Overweight Autoimmune thyroiditis Sinusitis Gastritis CD (celiac disease) Migraines Surgical History H/O abdominoplasty Family History Mother No problems noted. 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 The following possible complications were discussed with the patient: Intrauterine , Ectopic , Sepsis, Pelvic Infection, Irregular Bleeding and Amenorrhea, Perforation, Expulsion, Ovarian Cysts, Breast Cancer, The following adverse effects were discussed with the patient: alteration of menstrual bleeding pattern, including: unscheduled uterine bleeding decreased uterine bleeding increased scheduled uterine bleeding female genital tract bleeding ,amenorrhea , genital discharge , vulvovaginitis , breast pain , benign ovarian cyst and associated complications , dysmenorrhea , Gastrointestinal disorders abdominal/pelvic pain, headache/migraine , back pain , acne , depression Alternative options were discussed with the patient including but not limited: control pills, patch, NuvaRing, Depo-medroxyprogesterone acetate, Nexplanon, copper IUD, sterilization, vasectomy, others The procedure was explained in detail to patient , at the end patient signed the informed consent obtained. A no touch technique was used throughout the procedure. A speculum was placed into vagina and cervix was cleaned with betadine). A tenaculum was placed. A plastic sound was advanced through the external and internal os until it reached the fundus of the uterus, the depth was 8 cm. The sound was then withdrawn. The IUD was loaded in a sterile manner and advanced into position. The string was visualized and cut to 3 cm. Tenaculum site hemostatic. All instruments removed from vagina. Patient tolerated the procedure well. NO complications were noted. Patient was instructed to call for fever over 100.4, significant pain unrelieved by Motrin, IUD expulsion, heavy bleeding, or abnormal discharge. In addition, the following clinical considerations were discussed with the patient to call for removal: A stroke or heart attack ,Very severe or migraine headaches ,Unexplained fever ,Yellowing of the skin or whites of the eyes, as these may be signs of serious liver problems , or suspected , Pelvic pain or pain during sex ,HIV positive seroconversion in herself or her partner , Possible exposure to sexually transmitted infections Unusual vaginal discharge or genital sores , severe vaginal bleeding or bleeding that lasts a long time, or if she misses a menstrual period, Inability to feel Mirena's threads Counseled the patient that the IUD does not protect against STI's, recommended use of condoms for the first 7 days post insertion and explained to the patient that condoms are recommended for patients at risk for sexually transmitted infections. In for the patient that Mirena IUD is FDA approved for 8 years for contraception for 5 years for the treatment of heavy menses Instructed the patient to schedule a Follow up appointment in 4 to 6 weeks following insertion. This note was generated with a voice recognition program. Some errors may have been overlooked during the review of this note. Sometimes these errors may affect the content or meaning of a given sentence. [id number] Insertion Procedure code (CPT) selection complete Office Meds Mirena 21 mcg/24 hours (8 yrs) 52 mg intrauterine device Performing Provider: David Youssef MD Performing Location: [facility] [place] [facility] Documented (not given) by: David Youssef MD on 08/29/23 14:05 Dose Route Admin Location Dispensed Lot Number Expiration Date NDC Director [facility] 1 device intrauterine ea Results AMB Test Urine AMB Test Urine Negative Last Edit by Chaparrita Johnson CMA on 08/29/23 13:42 Results Reviewed Results Reviewed: Laboratory Last Values [facility] Negative 08/29/23 13:41 Assessment & Plan Assessment & Plan Orders: Orders AMB HCG Urine Test Today Z32.02 - Encounter for test, result negative AMB IUD Insertion/Removal - Practice Supplied Today Z30.430 - Encounter for insertion of intrauterine contraceptive device Medications: New Mirena (levonorgestrel) 1 device intrauterine ONCE 1 ea 0RF IUD insertion NS Z30.430 - Encounter for insertion of intrauterine contraceptive device Quality Reporting (2019) Adult ([facility] 138/12/05/68) Smoking risk assessment performed?: Yes Patient Tobacco Use Status: Never used Tobacco Coding Level of Care Code Procedure Only CPT Codes Details - CPT: 99081-KKF Insertion ([id number])
[2023-08-29 13:42] VITALS: BP 116/70; BMI 25.2
== END 2023-08-29 14:07 | disposition home or self-care (01) ==
LOC: HO.HWS 13:16
PROVIDERS: PCP Internal Medicine; Visit Provider Obstetrics & Gynecology
DX: Z30.430 Encounter for insertion of intrauterine contraceptive device (principal)
CPT/HCPCS: 58300

== ENCOUNTER 2023-08-29 13:16 | Outpatient (REF) | payer OTHER, SELFPAY ==
[2023-08-29 17:48] LABS: CT PCR NOT DETECTED (Not Detect.); NG PCR NOT DETECTED (Not Detect.)
== END 2023-08-29 13:17 | disposition home or self-care (01) ==
LOC: HO.LNP 13:16
PROVIDERS: PCP Internal Medicine; Visit Provider Obstetrics & Gynecology
DX: Z30.430 Encounter for insertion of intrauterine contraceptive device (principal); N93.9 Abnormal uterine and vaginal bleeding, unspecified
CPT/HCPCS: 0353U; 58300; 81025; J7298

== ENCOUNTER 2023-09-26 02:16 | Emergency (ER) | payer OTHER, SELFPAY ==
[2023-09-26 02:17] VITALS: BP 131/74; PULSE 82; RESP 18; TEMP 36.7; O2SAT 98; BMI 25.0
[2023-09-26 03:08] VITALS: BP 131/74; PULSE 82; RESP 18; TEMP 36.7; O2SAT 98
--- NOTE | 2023-09-26 03:09 | PC.NURSE ---
Pt ca&ox4, no signs of distress. Pt reports 10/10 headache/migraine with onset at 10pm Pt reports nausea no vomiting Plan of care ongoing.
== END 2023-09-26 04:07 | disposition left against medical advice (07) ==
PROVIDERS: Emergency Provider Emergency Medicine; PCP Internal Medicine
DX: G43.909 Migraine, unspecified, not intractable, without status migrainosus (principal)
CPT/HCPCS: 99282; 99284

== ENCOUNTER 2023-10-01 12:47 | Outpatient (AMB) | payer OTHER, SELFPAY ==
--- NOTE | 2023-10-01 12:48 | A.OFFPC_ITS ---
Vital Signs 10/01/23 12:50 Height 5 ft 6 in Weight 157 lb BMI 25.3 BP 120/76 Blood Pressure Location Lt brachial Position Sitting Intake Visit Reasons: Annual Exam Intake Note: Patient here for a physical exam Education Spec Required: No Accompanied by: Self / Same As Patient Allergies gluten [GLUTEN] Allergy (Intermediate, Verified 10/01/23 13:00) Diarrhea Medication List - Last Reconciled 10/01/23 by Marianne Otoole MD cholecalciferol (vitamin D3) 50 mcg PO DAILY 90 days ferrous sulfate 325 mg PO DAILY 90 days sumatriptan succinate 50 mg PO Q2-4H PRN 30 days Tobacco use date assessed: 10/01/23 Dental Screening Dental Screen Date: 10/01/23 Did you have a dental visit in the last 12 months?: No Did you have a dental problem in the last 6 months where you did not have access to dental care?: No Was dental information given to patient?: Patient has dentist HPI HPI Comments History of Present Illness Details This is 48-year-old female that comes for her physical exam. Last mammogram was 2022 and was normal. Last Pap smear was 2020. Has never had a colonoscopy. Will have Cologuard. Complains of migraines 3 times a week and sumatriptan is not working. Will be referred to neurology. Sumatriptan will be changed to rizatriptan. Amitriptyline will be added at bedtime for migraine prophylaxis. [facility] Medical History Hypovitaminosis D Seasonal allergies Iron deficiency anemia due to chronic blood loss Left ear pain Right knee pain Overweight Autoimmune thyroiditis Sinusitis Gastritis CD (celiac disease) Migraines Surgical History H/O abdominoplasty Family History Mother No problems noted. Father Lung cancer Social History Housing: House Alcohol intake: never Patient Tobacco Use Status: Never used Tobacco e-Cigarette/Vaping Use: Never Used Second Hand Smoke Exposure: No service: No Current occupational status: employed Current occupation: rt handed/ [employer] Current occupational exposures/hazards: No Cognitive needs: No Hearing needs: No Vision needs: Yes Female Reproductive History Menstrual Age of Menarche: 13 Questionnaire PHQ-9 Over the last 2 weeks, how often have you been bothered by any of the following problems? 1. Little interest or pleasure in doing things: not at all 2. Feeling down, depressed, or hopeless: not at all 3. Trouble falling or staying asleep, or sleeping too much: not at all 4. Feeling tired or having little energy: not at all 5. Poor appetite or overeating: not at all 6. Feeling bad about yourself - or that you are a failure or have let yourself or your family down: not at all 7. Trouble concentrating on things, such as reading the newspaper or watching television: not at all 8. Moving or speaking so slowly that other people could have noticed. Or the opposite - being so fidgety or restless that you have been moving around a lot more than usual: not at all 9. Thoughts that you would be better off or of hurting yourself in some way: not at all Total score: 0 Depression Screening Interpretation: Negative Depression Screening Done: Yes [id number] - PHQ-9 Billing: Yes Source: Developed by Drs. George Thao, Elizabeth Qureshi, Kalen Tilley and colleagues, with an educational kae from [facility]. Thrive Questionnaire Date Thrive assessed: 10/01/23 I am a: Patient What is your living situation today?: I have a steady place to live Within the past 12 months, did the food you bought not last and you didn't have the money to get more?: Never true Within the past 12 months, did you worry whether your food would run out before you got money to buy more?: Never true Do you have trouble paying for medicines?: No Do you have trouble getting transportation to medical appointments?: No Do you have trouble paying your heating and electricity bill?: No Do you have trouble taking care of your child, family member or friend?: No Do you have trouble with day-to-day activities such as bathing, preparing meals, shopping, managing finances, etc.?: No Are you currently unemployed and looking for a job?: No Are you interested in more education?: No Please select the resources that you would like help with: None Currently or been in a relationship where the following occur: no concerns reported AUDIT C Alcohol Use Questionnaire (AUDIT-C) 1. How often do you have a drink containing alcohol?: Never Total Score: 0 BRANDIE-7 AMB Questionnaire BRANDIE-7 Date BRANDIE - 7 assessed: 10/01/23 Feeling nervous, anxious, or on edge: 0 = Not at all Not being able to stop or control worryin = Not at all Worrying too much about different things: 0 = Not at all Trouble relaxin = Not at all Being so restless that it is hard to sit still: 0 = Not at all Becoming easily annoyed or irritable: 0 = Not at all Feeling afraid as if something awful might happen: 0 = Not at all Total BRANDIE-7 score (0-4 normal; 5-9 mild; 10-14 moderate; 15-21 severe): 0 Source: Developed by Drs. George Thao, Elizabeth Qureshi, Kalen Tilley and colleagues, with an educational kae from [facility]. BRANDIE-7 Assessment Billing BRANDIE-7 Assessment Tool: BRANDIE-7 Assessment 47309 Review of Systems Const All systems reviewed & are unremarkable except as noted in HPI and below Eyes Reports no additional complaints, Denies change in vision and Denies other visual disturbances Card Denies chest pain at rest, Denies chest pain with activity, Denies edema, Denies irregular heart rhythm, Denies claudication, Denies dyspnea, Denies dyspnea on exertion, Denies orthopnea, Denies paroxysmal nocturnal dyspnea and Denies slow heart rate Resp Denies cough, Denies dyspnea and Denies dyspnea on exertion GI Denies abdominal pain, Denies change in bowel habits, Denies excessive flatus, Denies nausea and Denies vomiting Denies urinary incontinence, Denies urinary hesitancy and Denies urinary urgency Musc Denies abnormal gait, Denies atrophy, Denies deformity and Denies limited range of motion Skin/Breast Denies bleeding lesions, Denies changing lesions and Denies rash Neuro Denies abnormal gait, Denies behavioral changes, Denies confusion and Denies lack of coordination Psych Denies behavioral changes and Denies confusion Physical exam (Primary Care) Vital Signs: Last Vital Signs BP 120/76 10/01/23 12:50 BMI result Body Mass Index 25.3 Tobacco/Smoking Status: Tobacco use Status Tobacco use date assessed 10/01/23 10/01/23 12:55 Patient Tobacco Use Status Never used Tobacco 10/01/23 12:55 e-Cigarette/Vaping Use Never Used 10/01/23 12:55 PHQ-9: PHQ-9 Score PHQ-9: Total score 0 10/01/23 13:04 Depression Screening Interpretation: Negative Thrive Assessment: Date of Thrive Assessment Date Thrive assessed 10/01/23 10/01/23 12:55 Currently or been in a relationship where the following occur: no concerns reported Const General: No confusion Orientation/consciousness: patient oriented x3 and No confusion HENMT Head: Yes normal to inspection, Yes normocephalic and Yes atraumatic Ears: external ears normal Eyes General: appearance normal, both eyes and all related structures Eyelids: Yes eyelids normal Conjunctivae: conjunctivae normal Neck Neck: Yes normal visual inspection and Yes supple Resp Effort & Inspection: normal respiratory effort Auscultation: clear to auscultation bilaterally Cardio Jugular venous distension: no JVD Rate: regular rate Rhythm: regular rhythm Heart sounds: S1 normal heart sound present and S2 normal heart sound present GI Inspection: Yes normal to inspection Palpation (GI): Soft to palpation and nontender Auscultation: normal bowel sounds Skin General skin exam: no rashes or lesions noted Neuro General: patient oriented x3, no focal motor deficits and No confusion Extrem General: Yes full ROM Psych Appearance: grossly normal Office Procedures Flu Questionnaire Does the patient have a severe egg allergy?: No Immunizations flu vacc [id number] 6mos up(PF) 60 mcg(15 mcgx4)/0.5 mL IM syringe Performing Provider: Marianne Otoole MD [facility] Documented (not given) by: KIRSTIN Calvillo on 10/01/23 12:57 Reason Not Given: Patient Refused Assessment and Plan Assessment & Plan (1) Physical exam: Code(s): Z00.00 - Encounter for general adult medical examination without abnormal fi ndings Plan: Repeat in a year. Orders: Orders Influenza [id number] Immunization Today Z23 - Encounter for immunization Complete Blood Count Auto Diff Today D64.9 - Anemia, unspecified Thyroid Stimulating Hormone Today E06.3 - Autoimmune thyroiditis Free T4 (Free Thyroxine) Today E06.3 - Autoimmune thyroiditis Comprehensive [place]. Panel Fast Today Z00.00 - Encounter for general adult medical examination without abnormal findings IRON PROFILE Today D64.9 - Anemia, unspecified Vitamin D 25-OH Total Today E55.9 - Vitamin D deficiency, unspecified Vitamin B12 and Folate Today E53.8 - Deficiency of other specified B group vitamins Lipid Panel Today Z00.00 - Encounter for general adult medical examination without abnormal findings Referrals Neurology Referral G43.009 - Migraine without aura, not intractable, without status migrainosus Cologuard Test Z12.11 - Encounter for screening for malignant neoplasm of colon, Z12.12 - Encounter for screening for malignant neoplasm of rectum Medications: New rizatriptan do not exceed 3 doses per 24 hrs 10 mg PO Q2-4H PRN 9 tabs 1RF migraine headache 30 days amitriptyline 10 mg PO BEDTIME 90 tabs 1RF 90 days G43.009 - Migraine without aura, not intractable, without status migrainosus Discontinued sumatriptan succinate do not exceed 4 doses per 24 hrs Discontinued Reason: Patient Completed Course 50 mg PO Q2-4H 30 days PRN 9 tabs 2RF migraine headache Coding Level of Care Code Est Pt Prev Care 40-64y(29864) Diagnoses Physical exam Z00.00 Additional Codes BRANDIE-7 Assessment Billing - BRANDIE-7 Assessment Tool: BRANDIE-7 Assessment 44604 ([id number]) Time Spent (min) 31
[2023-10-01 12:50] VITALS: BP 120/76; BMI 25.3
== END 2023-10-01 13:10 | disposition home or self-care (01) ==
PROVIDERS: Visit Provider Internal Medicine
DX: Z00.00 Encounter for general adult medical examination without abnormal findings (principal)
CPT/HCPCS: 99396

== ENCOUNTER 2024-01-30 07:58 | Outpatient (AMB) | payer OTHER, SELFPAY ==
--- NOTE | 2024-01-30 08:01 | A.OFFVIS_ITS ---
Vital Signs 01/30/24 08:02 Height 5 ft 6 in Weight 165 lb BMI 26.6 BP 118/82 Blood Pressure Location Rt brachial Position Sitting Pulse 90 Pulse Source Pulse Oximeter Pulse Oximetry (%) 98 Oxygen Delivery Method Room Air Intake Visit Reasons: [id number] Intake Note: Patient presents for migraines. Patient gets headaches 2-3 times a week takes rizatriptan with some help. Allergies gluten [GLUTEN] Allergy (Intermediate, Verified 01/30/24 08:04) Diarrhea Medication List - Last Reconciled 01/30/24 by LAURE Sosa amitriptyline 10 mg PO BEDTIME 90 days cholecalciferol (vitamin D3) 50 mcg PO DAILY 90 days ferrous sulfate 325 mg PO DAILY 90 days rizatriptan 10 mg PO Q2-4H PRN 30 days HPI Comments Details: Right- handed 48-yr-old female presents for new pt evaluation of headache disorder. Pt reports she has been having migraine since age 13. More recently, the migraine attacks have been worsening in frequency and severity. She previously saw neurology many yrs ago. Pt also endorses:? Neuro: Tingling hands Sleep d/o: has difficulty falling asleep, easily awoken, unrefreshing sleep, fatigue, unsure if she snores. Respiratory d/o: prone to sinus s/s CV disease: tachycardia at times, anemia Endocrine or metabolic d/o: Thyroid d/o- pt states she is being referred to endocrinology GI d/o: Prone to diarrhea Pertinent denials include: Musculoskeletal disorders or injury, History of concussion/head injury, Mood d/o, Respiratory d/o, Clotting d/o, History of seizure, syncope, or drop attacks, Constipation, Family history of migraine or other headache disorder Headache questionnaire:? Previous work-up: MRI: states at [facility]- states was normal but showed a knot . However no MRI found in [facility] portal. Typical headache characteristics: Prodrome symptoms: None Aura: Sees fireworks, blurry spots- x's a few minutes before the headache Pain intensity: 10/10 Location, quality, characteristics: Pressure, right or left sided, also in the eye. Associated symptoms? photophobia, phonophobia, osmophobia, nausea, vomiting, diarrhea, dizziness, activity intolerance, brain fog, nasal congestion, left temporal vessel swelling- whether headache is right or left sided. Postdrome: residual not right in space dizziness Triggers: stress, strong smell, walking at work. Menstrual triggers: in the past, but now has a Mirena IUD. Time of day: afternoon Duration and Frequency: 1-3 days, occurring 1 attack lasting 2-3 days per week How does headache impact your life? She is missing work and family obligations. MIDAS disability scale: 32 Current acute medication use/interventions: Rizatriptan 10mg- helps sometimes. Current preventative medication use: None Non-pharmacological interventions: Migraine cold cap Lifestyle considerations: Sleep routine: Bedtime: often does not fall asleep until 3-4am, Wake-up time: varies- 6am for work/help her child (adult child w/ physical disability), on the weekend 9am. Sleep difficulties: Endorses: Fatigue, Restless sleep, Restless legs- urge to move, leg cramps, creepy crawling sensation, and ankle swelling. Uses leg compression device- helps better than the weighted blanket. Has never tried RLS medication. Takes melatonin gummy. Caffeine use: 1 cup coffee per day, last cup by morning Substance use: Denies- Tobacco, Marijuana, or Alcohol. Exercise:?None, but moving a lot at work Employment:?works at [employer]. Family planning: None [facility] Medical History Hypovitaminosis D Seasonal allergies Iron deficiency anemia due to chronic blood loss Left ear pain Right knee pain Overweight Autoimmune thyroiditis Sinusitis Gastritis CD (celiac disease) Migraines Surgical History H/O abdominoplasty Family History Mother No problems noted. Father Lung cancer Social History Housing: House Alcohol intake: never Patient Tobacco Use Status: Never used Tobacco e-Cigarette/Vaping Use: Never Used Second Hand Smoke Exposure: No service: No Current occupational status: employed Current occupation: rt handed/ [employer] Current occupational exposures/hazards: No Cognitive needs: No Hearing needs: No Vision needs: Yes Female Reproductive History Menstrual Age of Menarche: 13 Physical Exam Vital Signs: Last Vital Signs Pulse 90 01/30/24 08:02 BP 118/82 01/30/24 08:02 Pulse Ox 98 01/30/24 08:02 Oxygen Delivery Method Room Air 01/30/24 08:02 BMI result Body Mass Index 26.6 Const Orientation/consciousness: patient oriented x3 HEENT Other: No palpable scalp tenderness. Head: Yes normocephalic Resp Effort & Inspection: normal respiratory effort and able to speak in complete sentences Neuro Other: photophobic General: patient oriented x3 Cranial nerves: Yes CN's II-XII intact bilaterally Cognition (Neuro): normal cognition Gait exam (Neuro): Normal gait present Motor exam (neuro): 5/5 motor strength present throughout Deep tendon reflexes (DTR's): Right triceps reflex intensity grade: 2+, Left triceps reflex intensity grade: 2+, Rt Biceps (C5, C6): 2+, Left biceps reflex intensity grade: 2+, Right brachioradialis reflex intensity grade: 2+, Left brachioradialis reflex intensity grade: 2+, Right patellar reflex intensity grade: 2+ and Left patellar reflex intensity grade: 2+ Coordination: [id number] test normal, tandem gait normal and Romberg test negative Pupils: Normal pupillary reactivity/response: bilateral Psych Appearance: grossly normal Mental Status: mental status grossly normal Speech and movement: Normal speech and movement present Affect: normal affect Attitude: cooperative Thought process: Normal thought process present Quality Reporting (2019) Adult ([facility] 138/12/05/68) Smoking risk assessment performed?: Yes Patient Tobacco Use Status: Never used Tobacco Assessment & Plan Assessment & Plan (1) Migraine with aura: Code(s): G43.109 - Migraine with aura, not intractable, without status migrainosus Category: Medical (2) Restless leg syndrome: Code(s): G25.81 - Restless legs syndrome Category: Medical (3) Muscle cramps: Code(s): R25.2 - Cramp and spasm Category: Medical (4) Iron deficiency anemia due to chronic blood loss: Code(s): D50.0 - Iron deficiency anemia secondary to blood loss (chronic) Category: Medical Plan Pt advised to undergo: Labs, in addition to labs already ordered by PCP, to assess for underlying etiologies of RLS s/s. For overall headache management: Optimize good self-care, including but not limited to maintaining a healthy diet, adequate fluid intake, adequate sleep, and engaging in regular physical activity. For headache triggers: Track headaches, especially after any treatment regimen changes. Migraine [employer] is one of many headache tracking apps. Light sensitivity tips: Patient may try blue light filtering glasses, green glasses, green light therapy. For acute headache treatment: Discussed importance of taking acute medications at the first sign of headache, however stressed importance of avoiding acute medication overuse (especially with combined headache medications). For now, continue Rizatriptan 10mg prn until below available. Resume Sumatriptan 4mg sc at onset of migraine, MR in 1 hr, max 8mg/day. Trial Nurtec ODT 75mg qd prn, max 1 tab per day. Potential adverse effects of triptans, including but not limited to nausea, fatigue, chest tightness/tingling (usually passes within a few minutes), medication overuse headaches. Potential adverse effects of gepants, including but not limited to fatigue, nausea, dry mouth, constipation. Previous acute migraine medication trials: Sumatriptan tab- ineffective, Sumatriptan inj was very helpful- but not covered. Acute migraine medication contraindications: None at this time For headache prevention medication: Preventative medications should be taken routinely as prescribed for best effect, it may take several weeks for full effect to take effect. Start Riboflavin 400mg qam Start Magnesium 400mg qhs Start Propranolol ER 60mg qhs, Potential adverse effects of betablockers, including but not limited to fatigue, hypotension, slow heart rate, mood changes, respiratory changes. Previous migraine prevention medication trials: Amitriptyline: does not tolerate. Topiramate: did not tolerate Migraine prevention medication contraindications: None at this time Pt seen in collaboration w/ Dr Natacha Johnston. Pt to follow-up in 2-3 months or sooner prn. Orders: Orders Ferritin 01/30/24 D50.0 - Iron deficiency anemia secondary to blood loss (chronic), R25.2 - Cramp and spasm Methylmalonic Acid 01/30/24 D50.0 - Iron deficiency anemia secondary to blood loss (chronic), R25.2 - Cramp and spasm Creatine Kinase Total 01/30/24 D50.0 - Iron deficiency anemia secondary to blood loss (chronic), R25.2 - Cramp and spasm Homocysteine 01/30/24 D50.0 - Iron deficiency anemia secondary to blood loss (chronic), R25.2 - Cramp and spasm Magnesium 01/30/24 D50.0 - Iron deficiency anemia secondary to blood loss (chronic), R25.2 - Cramp and spasm Medications: New riboflavin (vitamin B2) 400 mg PO DAILY 30 days 30 tabs 6RF magnesium oxide may hold for loose stools 400 mg PO BEDTIME 30 days 30 tabs 6RF rimegepant (Nurtec ODT) 75 mg PO ONCE 30 days PRN 16 tabs 6RF migraine headache MDD 1 tab sumatriptan succinate (0.5 mL) 4 mg subcutaneously at onset of migraine, may repeat x's 1 in 1 hr (max 8mg/day) PRN; 28 days 8 mL 6RF migraine headache propranolol ER 60 mg PO BEDTIME 30 days 30 caps 6RF
[2024-01-30 08:02] VITALS: BP 118/82; PULSE 90; O2SAT 98; BMI 26.6
== END 2024-01-30 09:13 | disposition home or self-care (01) ==
PROVIDERS: PCP Internal Medicine; Visit Provider Nurse Practitioner Family
DX: G43.109 Migraine with aura, not intractable, without status migrainosus (principal); G25.81 Restless legs syndrome; D50.0 Iron deficiency anemia secondary to blood loss (chronic)
CPT/HCPCS: 99204

== ENCOUNTER → 2024-01-30 07:58 | Outpatient (BNVA) | payer OTHER, SELFPAY | PROVIDERS: PCP Internal Medicine; Visit Provider Nurse Practitioner Family | DX: G43.109 Migraine with aura, not intractable, without status migrainosus (principal); G25.81 Restless legs syndrome; D50.0 Iron deficiency anemia secondary to blood loss (chronic) | CPT/HCPCS: 99202 ==

== ENCOUNTER 2024-01-30 09:22 | Outpatient (REF) | payer OTHER, SELFPAY ==
[2024-01-30 15:07] LABS: Magnesium 2.3 mg/dL (1.6-2.6)
[2024-01-30 15:10] LABS: Ferritin 6 ng/mL (10-250)
[2024-01-31 16:58] LABS: Homocysteine 7.3 umol/L (<10.4)
[2024-02-03 17:44] LABS: Methylmalonic Acid 63 nmol/L (87-318)
== END 2024-01-30 09:23 | disposition home or self-care (01) ==
LOC: HO.HKASLDS 09:22
PROVIDERS: Visit Provider Nurse Practitioner Family
DX: D50.0 Iron deficiency anemia secondary to blood loss (chronic) (principal); R25.2 Cramp and spasm
CPT/HCPCS: 36415; 82550; 82728; 83090; 83735; 83921

== ENCOUNTER 2024-02-17 13:10 | Outpatient (REF) | payer OTHER, SELFPAY ==
--- NOTE | ~2024-02-17 | MM_ITS ---
EXAMINATION: MM SCREENING DIGITAL BREAST TOMOSYNTHESIS, BILATERAL CLINICAL INFORMATION: Screening. Asymptomatic. COMPARISON: Mammography: This study is compared with prior exams dating back to 2015. TECHNIQUE: Digital breast tomosynthesis is performed in both the craniocaudal and mediolateral oblique views along with computer-aided detection (CAD). Synthesized 2D images are generated from the tomosynthesis. FINDINGS: The breasts are heterogeneously dense, which may obscure small masses (ACR BI-RADS breast composition Category c). There are no significant masses, abnormal calcifications, or other abnormalities. MM/MM tomosynthesis screening BI IMPRESSION: No mammographic evidence of malignancy. ASSESSMENT: BI-RADS BI-RADS 1 - Negative RECOMMENDATION: Routine annual mammography screening. 1 year F/U This examination should not preclude the clinical evaluation of a suspicious palpable abnormality. This patient's information was entered into a reminder system with a target due date for their next mammogram.
== END 2024-02-17 13:11 | disposition home or self-care (01) ==
LOC: HO.MAMMO 13:10
PROVIDERS: PCP Internal Medicine; Visit Provider Internal Medicine
DX: Z12.31 Encounter for screening mammogram for malignant neoplasm of breast (principal)
CPT/HCPCS: 77063; 77067

== ENCOUNTER → 2024-02-17 13:15 | Outpatient (BNV) | payer OTHER, SELFPAY | PROVIDERS: PCP Internal Medicine; Visit Provider Radiology Diagnostic Radiology | DX: Z12.31 Encounter for screening mammogram for malignant neoplasm of breast (principal) | CPT/HCPCS: 77063; 77067 ==

== ENCOUNTER 2024-04-02 11:11 | Outpatient (REF) | payer OTHER, SELFPAY ==
[2024-04-02 11:24] LABS: MANUAL DIFF FLAG NO
[2024-04-02 13:00] LABS: Basophils Absolute Auto 0.1 X10*3/uL (0.0-0.2); Eosinophils Absolute Auto 0.2 X10*3/uL (0.0-0.4); Eosinophils Percent Auto 2.6 % (0-4); Hematocrit 36.6 % (37.0-47.0); Hemoglobin 10.7 g/dl (12.0-16.0); Imm Gran Abs Auto 0.04 X10*3/uL (0.00-0.03); Imm Gran Pct Auto 0.4 % (0.0-0.4); Lymphocytes Absolute Auto 1.4 X10*3/uL (1.2-4.9); Lymphocytes Percent Auto 15.8 % (20-40); Mean Corpuscular HGB Conc 29.2 g/dl (31.0-35.0); Mean Corpuscular Hemoglobin 20.8 pg (27.0-33.0); Mean Corpuscular Volume 71.1 fL (80.0-98.0); Mean Platelet Volume 9.8 fL (9.4-12.3); Monocytes Absolute Auto 0.8 X10*3/uL (0.1-1.2); Monocytes Percent Auto 8.6 % (2-11); Neutrophils Absolute Auto 6.5 x10*3/uL (2.0-8.3); Neutrophils Percent Auto 71.6 % (45-73); Platelet Count 417 X10*3/uL (160-400); Red Blood Count 5.15 X10*6/uL (4.20-5.50); Red Cell Distribution Width 18.9 % (11.0-16.0); White Blood Count 9.1 X10*3/uL (4.8-10.8)
[2024-04-02 14:11] LABS: Vitamin B12 857 pg/mL (200-900)
[2024-04-02 14:17] LABS: Alanine Aminotransferase 10 U/L (0-31); Albumin Level 4.4 g/dL (3.5-5.0); Alkaline Phosphatase 76 U/L (39-117); Anion Gap 14 (12-20); Aspartate Amino Transferase 18 U/L (5-31); Bilirubin Total 0.3 mg/dL (0.0-1.0); Blood Urea Nitrogen 10 mg/dL (9-16); Calcium 9.1 mg/dL (8.4-10.2); Carbon Dioxide 24 mmol/L (22-29); Chloride 107 mmol/L (96-108); Estimated Glomerular Filt Rate > 60; Ferritin 7 ng/mL (10-250); Glucose Random 85 mg/dL (60-115); Iron 20 mcg/dL (30-160); Percent Iron Saturation 5 % (15-50); Potassium 4.2 mmol/L (3.3-5.1); Sodium 141 mmol/L (135-145); Total Iron Binding Capacity 377 mcg/dL (228-428); Total Protein 7.5 g/dL (6.5-8.0); Unsaturated Iron Binding 357 ug/dL
[2024-04-03 15:53] LABS: Homocysteine 5.3 umol/L (<10.4)
[2024-04-06 01:58] LABS: Methylmalonic Acid 87 nmol/L (55-335)
== END 2024-04-02 11:12 | disposition home or self-care (01) ==
LOC: HO.LAB 11:11
PROVIDERS: PCP Internal Medicine; Visit Provider Nurse Practitioner Family
DX: D64.9 Anemia, unspecified (principal); R25.2 Cramp and spasm
CPT/HCPCS: 36415; 80053; 82607; 82728; 82746; 83090; 83540; 83921; 85025

== ENCOUNTER 2024-07-16 15:02 | Emergency (ER) | payer OTHER, SELFPAY ==
[2024-07-16 15:24] VITALS: BP 120/88
== END 2024-07-16 17:57 | disposition left against medical advice (07) ==
LOC: HO.ED 17:51
PROVIDERS: Emergency Provider Emergency Medicine
DX: R51.9 Headache, unspecified (principal); R11.10 Vomiting, unspecified

== ENCOUNTER 2024-10-05 13:03 | Outpatient (AMB) | payer OTHER, SELFPAY ==
[2024-10-05 13:06] VITALS: BP 118/80; BMI 27.3
--- NOTE | 2024-10-05 13:06 | MHC.PC.OV ---
Vital Signs 10/05/24 13:06 Height 5 ft 6 in Weight 169 lb BMI 27.3 BP 118/80 Blood Pressure Location Lt brachial Position Sitting Intake Visit Reasons: Annual Exam Intake Note: Patient here for a physical exam Gi Asst Required: No Accompanied by: Self / Same As Patient Allergies gluten [GLUTEN] Allergy (Intermediate, Verified 10/05/24 13:14) Diarrhea Medication List - Last Reconciled 10/05/24 by Marianne Otoole MD rizatriptan 10 mg PO Q2-4H PRN 30 days Tobacco use date assessed: 10/05/24 Dental Screening Dental Screen Date: 10/05/24 Did you have a dental visit in the last 12 months?: No Did you have a dental problem in the last 6 months where you did not have access to dental care?: No HPI HPI Comments History of Present Illness Details The patient is a 49-year-old female presenting for her physical exam. She had symptoms related to a respiratory infection about a week ago. She reported experiencing difficulty breathing as her lungs did not sound clear. She was diagnosed with a respiratory infection and was prescribed an antibiotic and a nasal spray. The patient reports some improvement in her condition but stills feels some residual effects. She was previously given a COVID-19 test and RSV test, both of which were negative. Additionally, the patient has a history of anemia, as referenced during this visit, and she has been advised to undergo laboratory testing to further investigate this condition. - Mammogram completed this year: Results normal. - Cologuard test this year: Results negative. Next test scheduled for 2026. - Pap smear with HPV testing in 2020: Results negative. PFSH Medical History Hypovitaminosis D Seasonal allergies Iron deficiency anemia due to chronic blood loss Left ear pain Right knee pain Overweight Autoimmune thyroiditis Sinusitis Gastritis CD (celiac disease) Migraines Surgical History H/O abdominoplasty Family History Mother No problems noted. Father Lung cancer Social History Housing: House Alcohol intake: never Patient Tobacco Use Status: Never used Tobacco e-Cigarette/Vaping Use: Never Used Second Hand Smoke Exposure: No service: No Current occupational status: employed Current occupation: rt handed/ [employer] Current occupational exposures/hazards: No Cognitive needs: No Hearing needs: No Vision needs: Yes Female Reproductive History Menstrual Age of Menarche: 13 Questionnaire PHQ-9 Over the last 2 weeks, how often have you been bothered by any of the following problems? 1. Little interest or pleasure in doing things: not at all 2. Feeling down, depressed, or hopeless: not at all 3. Trouble falling or staying asleep, or sleeping too much: several days 4. Feeling tired or having little energy: several days 5. Poor appetite or overeating: not at all 6. Feeling bad about yourself - or that you are a failure or have let yourself or your family down: not at all 7. Trouble concentrating on things, such as reading the newspaper or watching television: not at all 8. Moving or speaking so slowly that other people could have noticed. Or the opposite - being so fidgety or restless that you have been moving around a lot more than usual: not at all 9. Thoughts that you would be better off or of hurting yourself in some way: not at all Total score: 2 Depression Screening Interpretation: Negative Depression Screening Done: Yes 72090 - PHQ-9 Billing: Yes Source: Developed by Drs. George Thao, Elizabeth Qureshi, Kalen Tilley and colleagues, with an educational kae from [employer]. Thrive Questionnaire Date Thrive assessed: 09/28/24 I am a: Patient What is your living situation today?: I have a steady place to live Within the past 12 months, did the food you bought not last and you didn't have the money to get more?: I choose not to answer this question Within the past 12 months, did you worry whether your food would run out before you got money to buy more?: I choose not to answer this question Do you have trouble paying for medicines?: No Do you have trouble getting transportation to medical appointments?: No Do you have trouble paying your heating and electricity bill?: No Do you have trouble taking care of your child, family member or friend?: No Do you have trouble with day-to-day activities such as bathing, preparing meals, shopping, managing finances, etc.?: No Are you currently unemployed and looking for a job?: No Are you interested in more education?: No Please select the resources that you would like help with: None Currently or been in a relationship where the following occur: No concerns reported THRIVE Score: 0 AUDIT C Alcohol Use Questionnaire (AUDIT-C) 1. How often do you have a drink containing alcohol?: Never Total Score: 0 Score Reviewed/Action Taken: No BRANDIE-7 AMB Questionnaire BRANDIE-7 Date BRANDIE - 7 assessed: 10/05/24 Feeling nervous, anxious, or on edge: 0 = Not at all Not being able to stop or control worryin = Not at all Worrying too much about different things: 0 = Not at all Trouble relaxin = Not at all Being so restless that it is hard to sit still: 0 = Not at all Becoming easily annoyed or irritable: 0 = Not at all Feeling afraid as if something awful might happen: 0 = Not at all Total BRANDIE-7 score (0-4 normal; 5-9 mild; 10-14 moderate; 15-21 severe): 0 Source: Developed by Drs. George Thao, Elizabeth Qureshi, Kalen Tilley and colleagues, with an educational kae from [employer]. BRANDIE-7 Assessment Billing BRANDIE-7 Assessment Tool: BRANDIE-7 Assessment 77573 Review of Systems Const Details: - Respiratory: Reports residual respiratory symptoms post-treatment. - Musculoskeletal: Reports ankle pain and swelling at the end of the day. Physical exam (Primary Care) Vital Signs: Last Vital Signs BP 118/80 10/05/24 13:06 BMI result Body Mass Index 27.3 Tobacco/Smoking Status: Tobacco use Status Tobacco use date assessed 10/05/24 10/05/24 13:12 Patient Tobacco Use Status Never used Tobacco 10/05/24 13:12 e-Cigarette/Vaping Use Never Used 10/05/24 13:12 PHQ-9: PHQ-9 Score PHQ-9: Total score 2 10/05/24 13:17 Depression Screening Interpretation: Negative Thrive Assessment: Date of Thrive Assessment Date Thrive assessed 09/28/24 10/05/24 13:12 Currently or been in a relationship where the following occur: No concerns reported Const Other: General: Cooperative, healthy appearing, comfortable, no acute distress and well developed Orientation: Patient oriented x3 Limitations: No limitations Head: Normal to inspection Ears: Hearing grossly normal bilaterally Nose: Normal external nose present Face and sinus: Normal facial exam Eyes: Appearance normal, both eyes and all related structures Neck: Normal visual inspection and Yes full ROM Respiratory: Abnormal respiratory effort noted, infection diagnosed, lungs not heard well Cardiovascular: Regular rate and rhythm. Normal S1 and S2 GI: Normal to inspection. Soft to palpation and nontender Skin: No rashes or lesions noted Neuro: Patient oriented x3 Extremities: Normal to inspection, but reports pain and swelling in the ankle area at the end of the day Office Procedures Flu Questionnaire Does the patient have a severe egg allergy?: No Immunizations Fluarix Triv [id number] (PF) 45 mcg (15 mcg x 3)/0.5 mL IM syringe Performing Provider: Marianne Otoole MD [facility] Documented (not given) by: KIRSTIN Calvillo on 10/05/24 13:12 Reason Not Given: Patient Refused Coding Level of Care Code Est Pt Level 3 (90466) Est Pt Prev Care 40-64y(57064) Diagnoses Physical exam Z00.00 Shortness of breath R06.02 Dyspnea type: shortness of breath Additional Codes BRANDIE-7 Assessment Billing - BRANDIE-7 Assessment Tool: BRANDIE-7 Assessment 97716 ([id number]) PHQ-9 - 87958 - PHQ-9 Billing: Yes ([id number]) Time Spent (min) 33 Assessment & Plan Assessment & Plan (1) Physical exam: Code(s): Z00.00 - Encounter for general adult medical examination without abnormal findings Category: Medical (2) Dyspnea: Code(s): R06.00 - Dyspnea, unspecified Category: Medical Qualifiers: Dyspnea type: shortness of breath Qualified Code(s): R06.02 - Shortness of breath Plan - Recommend chest X-ray to evaluate respiratory status. - Complete laboratory workup for anemia assessment including cholesterol, sugar, liver enzymes. - Continue current medications for respiratory infection. - Advise reduction of sodium intake and elevate legs to alleviate ankle swelling. Patient was informed and verbally consented to the use of an ambient scribe for clinic note documentation during this visit. During the visit, we discussed the management of her respiratory infection. I informed her that a chest X-ray would be ordered to further assess her lung condition. Regarding her history of anemia, I explained the importance of conducting laboratory tests to address any potential iron deficiency. We also reviewed lifestyle modifications, such as reducing salt intake and elevating her legs, to help manage her reported ankle swelling. The patient was informed about the normal results of her mammogram and Cologuard test, and future health maintenance was discussed. Orders: Orders Influenza [id number] Immunization Today Z23 - Encounter for immunization IRON PROFILE Today D64.9 - Anemia, unspecified XR chest 2V Today R06.00 - Dyspnea, unspecified Thyroid Stimulating Hormone Today E06.3 - Autoimmune thyroiditis Free T4 (Free Thyroxine) Today E06.3 - Autoimmune thyroiditis Comprehensive [place]. Panel Fast Today Z00.00 - Encounter for general adult medical examination without abnormal findings Complete Blood Count Auto Diff Today D64.9 - Anemia, unspecified Vitamin D 25-OH Total Today E55.9 - Vitamin D deficiency, unspecified Lipid Panel Today Z00.00 - Encounter for general adult medical examination without abnormal findings Patient Instructions: - Complete the lab tests for anemia as discussed. - Continue using the nasal spray and antibiotic as prescribed. - Reduce salt intake in your diet. - Elevate your legs when sitting to help reduce ankle swelling. - Follow up as necessary.
== END 2024-10-05 13:22 | disposition home or self-care (01) ==
PROVIDERS: PCP Internal Medicine; Visit Provider Internal Medicine
DX: Z00.00 Encounter for general adult medical examination without abnormal findings (principal); R06.02 Shortness of breath

== ENCOUNTER → 2024-10-05 13:03 | Outpatient (BNVA) | payer OTHER, SELFPAY | PROVIDERS: PCP Internal Medicine; Visit Provider Internal Medicine | DX: Z00.00 Encounter for general adult medical examination without abnormal findings (principal); R06.02 Shortness of breath; Z28.21 Immunization not carried out because of patient refusal; E06.3 Autoimmune thyroiditis; R06.00 Dyspnea, unspecified; D64.9 Anemia, unspecified | CPT/HCPCS: 96127; 99212; 99396 ==

== ENCOUNTER 2024-10-10 09:52 | Emergency (ER) | payer OTHER, SELFPAY ==
--- NOTE | ~2024-10-10 | CT_ITS ---
CLINICAL HISTORY: pain, injury CT head without contrast Comparison: CT/[place]/SR - BRAIN WO IV CONTRAST [id number] - 07/26/18 14:33 EDT Findings: No intra-axial mass, midline shift, hydrocephalus, or acute hemorrhage. No significant atrophy-like change or white matter disease. Mucous retention cyst within the left maxillary sinus. The orbits are within normal limits. Left parieto-occipital scalp contusion. No skull fracture. IMPRESSION: No skull fracture or intracranial hemorrhage. This document has been electronically signed by: Thalia Brady MD on 10/10/2024 13:54:37
--- NOTE | ~2024-10-10 | CT_ITS ---
CLINICAL HISTORY: fall, injury CT maxillofacial without contrast Comparison: CT/[place]/SR - BRAIN WO IV CONTRAST [id number] - 07/26/18 14:33 EDT Findings: No acute fractures. Temporomandibular joints are intact. There is a left maxillary sinus mucous retention cyst. Unremarkable orbital contents. Visualized intracranial contents are within normal limits. No foreign bodies. IMPRESSION: No acute displaced facial bone fracture. This document has been electronically signed by: Thalia Brady MD on 10/10/2024 14:23:52
--- NOTE | ~2024-10-10 | CT_ITS ---
CLINICAL HISTORY: pain, injury CT cervical spine without contrast Comparison: None Findings: Vertebral alignment is within normal limits. 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 No significant degenerative disc disease. No central canal narrowing. No acute fractures or dislocations. Visualized intracranial contents are unremarkable. Markedly heterogeneous thyroid gland. Suspect multiple thyroid nodules. Lung apices are clear. IMPRESSION: 1. No acute abnormality of the cervical spine. 2. Suspect multiple thyroid nodules. Recommend ultrasound evaluation when clinically appropriate. This document has been electronically signed by: Thalia Brady MD on 10/10/2024 14:23:50
[2024-10-10 09:56] VITALS: BP 146/96; PULSE 126; RESP 22; TEMP 36.8; O2SAT 99; BMI 27.4
--- NOTE | 2024-10-10 10:04 | PC.NURSE ---
c-matthew in triage and put into emc3
--- NOTE | 2024-10-10 10:10 | ED_ITS ---
HPI - General Adult General Chief complaint: Fall Stated complaint: fall, hit head Time Seen by Provider: 10/10/24 10:10 Source: patient Mode of arrival: ambulatory Limitations: no limitations History of Present Illness ED Provider: Margarita Nunez PA-C HPI narrative: Patient is a 49 year old assigned female at with a history of autoimmune thyroiditis, anemia, and migraines presenting to the emergency department today with a headache and neck pain after a slip and fall on the ice. Patient states that she was walking out of her house when she slipped on ice and hit the back of her head. Patient denies any loss of consciousness with the incident. Patient denies any dizziness, lightheadedness, abdominal pain, nausea, vomiting, fever, chills, blurry vision, double vision, loss of vision, chest pain, difficulty breathing, shortness of breath, back pain, night sweats, pain with urination, increased urinary frequency, increased urinary urgency, blood in her urine or stool, syncope or a near syncopal episode, bowel incontinence, bladder incontinence, or any other complaints at this time. Onset (ago): minute(s) Location: head and neck Relieving factors: none Exacerbating factors: none Associated symptoms: denies other symptoms Treatments prior to arrival: none Related Data Previous Rx's ?Medication ?Instructions ?Recorded rizatriptan 10 mg tablet 10 mg PO Q2-4H PRN migraine 08/16/24 headache 30 days #9 tabs cyclobenzaprine 5 mg tablet 5 mg PO TID PRN neck pain 7 days 10/10/24 #21 tabs Allergies Allergy/AdvReac Type Severity Reaction Status Date / Time gluten [GLUTEN] Allergy Intermediate Diarrhea Verified 10/10/24 10:02 Review of Systems 2 Constitutional: Constitutional: Reports no additional constitutional complaints, Denies chills, Denies fever(s), Reports headache(s) and Denies night sweats Eyes: Eyes: Reports no additional eye complaints, Denies blurry vision, Denies change in vision, Denies diplopia, Denies eye discharge, Denies loss of vision and Denies eye pain ENT: Denies dizziness, Reports headache(s) and Reports neck pain Cardiovascular: Cardiovascular: Reports no additional cardiovascular complaints, Denies chest pain, Denies lightheadedness, Denies Loss of Consciousness and Denies dyspnea Respiratory: Respiratory: Reports no additional respiratory complaints and Denies dyspnea Gastrointestinal: Gastrointestinal: Reports no additional gastrointestinal complaints, Denies abdominal pain, Denies melena, Denies hematochezia, Denies change in bowel habits and Denies change in stool character Genitourinary: Genitourinary: Denies hematuria, Denies urinary frequency, Denies dysuria, Denies urinary incontinence, Denies urinary hesitancy and Denies urinary urgency Musculoskeletal: Musculoskeletal: Reports no additional musculoskeletal complaints, Reports neck pain, Denies numbness and Denies tingling Neurologic: Denies dizziness, Reports headache(s), Denies loss of vision, Denies numbness and Denies tingling Psychiatric: Psychiatric: Reports no additional psychiatric complaints Endocrine: Endocrine: Reports no additional endocrine complaints Hematologic/Lymphatic: Hematologic/Lymphatic: Reports no additional hematologic/lymphatic complaints Allergic/Immunologic: Allergic/Immunologic: Reports no additional allergic/immunologic complaints PMFSH Past Medical History Attestation statement: The following information was validated with the patient. Source: old records reviewed and nursing notes reviewed Medical History Hypovitaminosis D Seasonal allergies Iron deficiency anemia due to chronic blood loss Left ear pain Right knee pain Overweight Autoimmune thyroiditis Sinusitis Gastritis CD (celiac disease) Migraines Surgical History H/O abdominoplasty Family History Family History Mother No problems noted. Father Lung cancer Social History Social History Housing: House Alcohol intake: never Patient Tobacco Use Status: Never used Tobacco e-Cigarette/Vaping Use: Never Used Second Hand Smoke Exposure: No Advance Directives: No Advance Directives Information Provided: Yes Do you have a plan to hurt others: No Plan service: No Current occupational status: employed Current occupation: rt handed/ [employer] Current occupational exposures/hazards: No Cognitive needs: No Hearing needs: No Vision needs: Yes Physical Exam ED Vital Signs: Vital Signs - 24 hr 10/10/24 09:56 10/10/24 12:35 10/10/24 14:22 Temperature 98.3 F Pulse Rate 126 H 75 79 Respiratory Rate 22 H 16 16 Blood Pressure 146/96 H 123/68 109/66 Pulse Oximetry 99 97 99 Oxygen Delivery Method Room Air Room Air Room Air 10/10/24 14:32 Temperature 98.2 F Pulse Rate 79 Respiratory Rate 18 Blood Pressure 109/66 Pulse Oximetry 99 Oxygen Delivery Method Room Air BMI result Body Mass Index 27.4 Const General: cooperative, no acute distress, alert and awake Nutritional Appearance: well nourished Orientation/consciousness: patient oriented x3 Limitations: no limitations [facility] Head images: 2 1. hematoma - no open areas, no bleeding Ears: hearing grossly normal bilaterally and external ears normal General nose exam: Normal external nose present, no nasal discharge noted and no epistaxis Face and sinus: Yes normal facial exam, No abrasion and No laceration Mouth: Normal oral and palatal mucosa present, no drooling and no muffled voice Eyes General: appearance normal, both eyes and all related structures Periorbital: periorbital findings normal Eyelids: Yes eyelids normal Conjunctivae: conjunctivae normal Pupils: Equal, round and reactive pupils present EOM: EOMs intact bilaterally Neck Neck: Yes normal visual inspection, Yes full ROM and Yes no lymphadenopathy Chest Chest palpation & inspection: normal inspection of the chest Resp Effort & Inspection: normal respiratory effort and able to speak in complete sentences GI Inspection: Yes normal to inspection Neuro General: patient oriented x3 and moves all extremities Cranial nerves: Yes Equal, round and reactive pupils present Cognition (Neuro): normal cognition Extrem General: Yes normal to inspection, Yes full ROM and Yes capillary refill normal Psych Appearance: grossly normal Mental Status: mental status grossly normal Affect: normal affect Attitude: cooperative Thought process: Normal thought process present Thought content: Normal thought content present Insight: Good insight present (Psych) Medications Administered Discontinued Medications Generic Name Dose Route Start Last Admin Trade Name Freq PRN Reason Stop Dose Admin Ketorolac Tromethamine 15 mg 10/10/24 14:24 10/10/24 14:27 Ketorolac Tromethamine 15 Mg/Ml Vial IM 10/10/24 14:25 15 mg ONCE ONE Administration Morphine Sulfate 4 mg 10/10/24 12:34 10/10/24 12:45 Morphine Sulfate 4 Mg/Ml Cartridge IM 10/10/24 12:35 4 mg ONCE ONE Administration Protocol Ondansetron HCl 4 mg 10/10/24 12:35 10/10/24 12:44 Ondansetron Odt 4 Mg Tab.Rapdis TRANSLINGU 10/10/24 12:36 4 mg ONCE ONE Administration Medical Decision Making Medical Decision Making MDM Narrative: Patient is a 49 year old assigned female at with a history of autoimmune thyroiditis, anemia, and migraines presenting to the emergency department today with a headache and neck pain after a slip and fall on the ice. Patient's physical exam was as noted in the physical exam portion of this note. Patient's CT head, c-spine, and facial bones showed no acute process. Patient's c-spine CT did mention thyroid nodules which the patient stated she was aware of. I explained my physical exam findings as well as all test results to the patient. I answered all questions asked by the patient. Patient received IM Toradol and Morphine which, upon re-evaluation, she stated it helped her symptoms significantly. I stressed the importance of the patient taking her medication as directed (either prescribed or as the over the counter packaging recommends). I stressed the importance of the patient following up with [her primary care provider. I stressed the importance of the patient returning to the emergency department immediately if her symptoms were to worsen or if she were to develop any dizziness, shortness of breath, difficulty breathing, chest pain, blurry vision, loss of vision, nausea, vomiting, abdominal pain, fever, chills, back pain, or any other complaints. Patient verbalized agreement and understanding with this treatment plan and discharge. Differential Diagnosis Differential Diagnoses: The differential diagnosis associated with the presentation includes Headache Concussion Cervical strain Cervical sprain Admission/Observation Consideration of admission/observation: Escalation of care including admission/observation considered Patient would have been admitted to the hospital had her work up had any findings where hospital admission was appropriate and her clinical presentation warranted hospital admission. Independent Interpretation I performed an independent interpretation of an: CT Scan Interpretation: My interpretation is in agreement with the radiologist's impression of these imaging studies. L CLINICAL HISTORY: fall, injury CT maxillofacial without contrast Comparison: CT/[place]/SR - BRAIN WO IV CONTRAST [id number] - 07/26/18 14:33 EDT Findings: No acute fractures. Temporomandibular joints are intact. There is a left maxillary sinus mucous retention cyst. Unremarkable orbital contents. Visualized intracranial contents are within normal limits. No foreign bodies. IMPRESSION: No acute displaced facial bone fracture. This document has been electronically signed by: Thalia Brady MD on 10/10/2024 14:23:52 Dictated By: Thalia Brady MD Signed By: Electronically signed by Thalia Brady MD 10/10/24 1424 CLINICAL HISTORY: pain, injury CT cervical spine without contrast Comparison: None Findings: Vertebral alignment is within normal limits. 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 No significant degenerative disc disease. No central canal narrowing. No acute fractures or dislocations. Visualized intracranial contents are unremarkable. Markedly heterogeneous thyroid gland. Suspect multiple thyroid nodules. Lung apices are clear. IMPRESSION: 1. No acute abnormality of the cervical spine. 2. Suspect multiple thyroid nodules. Recommend ultrasound evaluation when clinically appropriate. This document has been electronically signed by: Thalia Brady MD on 10/10/2024 14:23:50 Dictated By: Thalia Brady MD Signed By: Electronically signed by Thalia Brady MD 10/10/24 1424 CLINICAL HISTORY: pain, injury CT head without contrast Comparison: CT/[place]/SR - BRAIN WO IV CONTRAST [id number] - 07/26/18 14:33 EDT Findings: No intra-axial mass, midline shift, hydrocephalus, or acute hemorrhage. No significant atrophy-like change or white matter disease. Mucous retention cyst within the left maxillary sinus. The orbits are within normal limits. Left parieto-occipital scalp contusion. No skull fracture. IMPRESSION: No skull fracture or intracranial hemorrhage. This document has been electronically signed by: Thalia Brady MD on 10/10/2024 13:54:37 Dictated By: Thalia Brady MD Signed By: Electronically signed by Thalia Brady MD 10/10/24 6424 Radiology Impression Discussion of test interpretation with radiology: I have reviewed the radiologist's reading. Prescription Management I considered prescription management with: Pain Medication (patient prescribed pain medication) Discharge Plan Discharge Clinical Impression: Concussion, Hematoma, Fall, Cervical strain Patient Disposition: Home, Self-Care Instructions: Concussion (ED), Cervical Sprain (ED), Fall Prevention (ED), Hematoma (ED) Additional Instructions: Follow up with your primary care provider. Return to the emergency department immediately if your symptoms worsen or if you develop any dizziness, shortness of breath, difficulty breathing, chest pain, blurry vision, loss of vision, nausea, vomiting, abdominal pain, fever, chills, back pain, or any other complaints. Prescriptions: New cyclobenzaprine 5 mg tablet 5 mg PO TID PRN (Reason: neck pain) 7 Days Qty: 21 0RF No Action rizatriptan 10 mg tablet 10 mg PO Q2-4H PRN (Reason: migraine headache) 30 Days Qty: 9 1RF Rx Instructions: do not exceed 3 doses per 24 hrs Referrals: Marianne Shoemaker MD [Primary Care Provider] - Stand Alone Forms: Work/School Release Interventions: ED Discharge Assessment Last Done: 10/10/24 14:32 Discharge Date/Time: 10/10/24 14:34 Print Language: Macedonian
[2024-10-10 12:35] VITALS: BP 123/68; PULSE 75; RESP 16; O2SAT 97
[2024-10-10] MEDS: Ondansetron ODT 4 MG TAB.RAPDIS TRANSLINGU (12:44)
[2024-10-10] MEDS: Morphine Sulfate 4 MG/ML CARTRIDGE IM (12:45)
[2024-10-10 14:22] VITALS: BP 109/66; PULSE 79; RESP 16; O2SAT 99
[2024-10-10] MEDS: Ketorolac Tromethamine 15 MG/ML VIAL IM (14:27)
[2024-10-10 14:32] VITALS: BP 109/66; PULSE 79; RESP 18; TEMP 36.8; O2SAT 99
== END 2024-10-10 14:34 | disposition home or self-care (01) ==
PROVIDERS: Emergency Provider Emergency Medicine; PCP Internal Medicine
DX: S06.0X0A Concussion without loss of consciousness, initial encounter (principal); S16.1XXA Strain of muscle, fascia and tendon at neck level, initial encounter; S00.03XA Contusion of scalp, initial encounter; W00.0XXA Fall on same level due to ice and snow, initial encounter; Y93.01 Activity, walking, marching and hiking; Y92.008 Other place in unspecified non-institutional (private) residence as the place of occurrence of the external cause; Y99.9 Unspecified external cause status
CPT/HCPCS: 70450; 70486; 72125; 96372; 99283; 99284; J1885; J2270

== ENCOUNTER → 2024-10-10 10:10 | Outpatient (BNV) | payer OTHER, SELFPAY | PROVIDERS: Emergency Provider Emergency Medicine; PCP Internal Medicine; Visit Provider Radiology Diagnostic Radiology | DX: R51.9 Headache, unspecified (principal); M54.2 Cervicalgia; W19.XXXA Unspecified fall, initial encounter | CPT/HCPCS: 70450; 70486; 72125 ==

== ENCOUNTER 2024-10-22 09:27 | Outpatient (REF) | payer OTHER, SELFPAY ==
--- NOTE | ~2024-10-22 | XR_ITS ---
EXAMINATION: XR CHEST CLINICAL INFORMATION: R06.00 - Dyspnea, unspecified COMPARISON: 07/18/2016 TECHNIQUE: 2 views of the chest were obtained. FINDINGS: Surgical clips RIGHT upper quadrant. Mild degenerative changes in the thoracic spine. There is no gross pneumothorax. Heart size is normal. Lung volumes are low. No significant pleural effusion. Mild streaky opacities at the lung bases. Low lung volumes. XR/XR chest 2V IMPRESSION: Mild streaky opacities at the lung bases. Low lung volumes. Electronically signed by: Mary Ann Osman MD 10/26/2024 09:53 AM EST
[2024-10-22 09:38] LABS: MANUAL DIFF FLAG NO
[2024-10-22 10:31] LABS: Basophils Absolute Auto 0.1 X10*3/uL (0.0-0.2); Basophils Percent Auto 0.8 % (0-2); Eosinophils Absolute Auto 0.4 X10*3/uL (0.0-0.4); Eosinophils Percent Auto 3.4 % (0-4); Hematocrit 37.9 % (37.0-47.0); Hemoglobin 11.8 g/dl (12.0-16.0); Imm Gran Abs Auto 0.04 X10*3/uL (0.00-0.03); Imm Gran Pct Auto 0.4 % (0.0-0.4); Lymphocytes Absolute Auto 1.9 X10*3/uL (1.2-4.9); Lymphocytes Percent Auto 16.9 % (20-40); Mean Corpuscular HGB Conc 31.1 g/dl (31.0-35.0); Mean Corpuscular Hemoglobin 23.6 pg (27.0-33.0); Mean Platelet Volume 9.9 fL (9.4-12.3); Monocytes Percent Auto 8.6 % (2-11); Neutrophils Absolute Auto 7.8 x10*3/uL (2.0-8.3); Neutrophils Percent Auto 69.9 % (45-73); Platelet Count 417 X10*3/uL (160-400); Red Blood Count 4.99 X10*6/uL (4.20-5.50); Red Cell Distribution Width 15.9 % (11.0-16.0); White Blood Count 11.2 X10*3/uL (4.8-10.8)
[2024-10-22 11:10] LABS: Alanine Aminotransferase 14 U/L (0-31); Albumin Level 4.2 g/dL (3.5-5.0); Anion Gap 12 (12-20); Aspartate Amino Transferase 20 U/L (5-31); Bilirubin Total 0.3 mg/dL (0.0-1.0); Blood Urea Nitrogen 9 mg/dL (9-16); Calcium 8.9 mg/dL (8.4-10.2); Carbon Dioxide 24 mmol/L (22-29); Chloride 109 mmol/L (96-108); Cholesterol 151 mg/dL (<200); Estimated Glomerular Filt Rate > 60; Glucose Fasting 102 mg/dL (60-99); HDL Cholesterol 47 mg/dL (>40); Iron 35 mcg/dL (30-160); LDL Cholesterol Calculated 85 mg/dL (<100); Percent Iron Saturation 10 % (15-50); Sodium 141 mmol/L (135-145); Total Iron Binding Capacity 346 mcg/dL (228-428); Total Protein 7.6 g/dL (6.5-8.0); Triglycerides 97 mg/dL (<150); Unsaturated Iron Binding 311 ug/dL
[2024-10-22 11:35] LABS: Free T4 (Free Thyroxine) 0.77 ng/dL (0.71-1.85); Thyroid Stimulating Hormone 4.91 uIU/mL (0.32-4.0); Vitamin D 25-OH Total 42.8 ng/mL (>30)
[2024-10-22 12:25] LABS: Alkaline Phosphatase 87 U/L (39-117)
== END 2024-10-22 09:28 | disposition home or self-care (01) ==
LOC: HO.XRAY 09:27
PROVIDERS: PCP Internal Medicine; Visit Provider Internal Medicine
DX: Z00.00 Encounter for general adult medical examination without abnormal findings (principal); D64.9 Anemia, unspecified; E06.3 Autoimmune thyroiditis; E55.9 Vitamin D deficiency, unspecified; R06.00 Dyspnea, unspecified
CPT/HCPCS: 36415; 71046; 80053; 80061; 82306; 83540; 84439; 84443; 85025

== ENCOUNTER 2024-10-28 09:33 | Outpatient (AMB) | payer OTHER, SELFPAY ==
--- NOTE | 2024-10-28 09:35 | A.OFFPC_ITS ---
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 Required: No Accompanied by: Self / Same As Patient Allergies gluten [GLUTEN] Allergy (Intermediate, Verified 10/28/24 10:05) Diarrhea Medication List - Last Reconciled 10/28/24 by Marianne Otoole MD cyclobenzaprine 5 mg PO TID PRN 7 days rizatriptan 10 mg PO Q2-4H PRN 30 days Tobacco use date assessed: 10/28/24 Dental Screening Dental Screen Date: 10/28/24 Did you have a dental visit in the last 12 months?: No Did you have a dental problem in the last 6 months where you did not have access to dental care?: No Was dental information given to patient?: Patient has dentist HPI HPI Comments History of Present Illness Details The patient is a 49-year-old female presenting with concerns related to thyroid nodules, shortness of breath, dry cough, and bilateral leg swelling. Thyroid nodules were discovered incidentally during a previous evaluation. An ultrasound has been recommended for further assessment to determine the nature of the nodules as they were observed to be present but did not require medication at the time. There is a history of tremor associated with the thyroid nodules. She reports experiencing shortness of breath frequently and describes a dry cough that seems to remain in the chest, not productive in nature. Additionally, she reports bilateral leg swelling, notably worse after periods of standing and associated with a sensation julianne to having a large abdomen, suggestive of fluid retention or vascular congestion. These symptoms have necessitated consideration of additional cardiac evaluation, including an ultrasound of the heart, to rule out potential congestive causes. She had to go to the hospital 10/10/2024 due to falling and slipping on ice hitting her head. Head CT was negative. History of migraines stable with meds. Has a murmur and complains of leg swelling and will have echocardiogram to rule out congestive heart failure. [facility] Medical History Hypovitaminosis D Seasonal allergies Iron deficiency anemia due to chronic blood loss Left ear pain Right knee pain Overweight Autoimmune thyroiditis Sinusitis Gastritis CD (celiac disease) Migraines Surgical History H/O abdominoplasty Family History Mother No problems noted. Father Lung cancer Social History Housing: House Alcohol intake: never Patient Tobacco Use Status: Never used Tobacco e-Cigarette/Vaping Use: Never Used Second Hand Smoke Exposure: No service: No Current occupational status: employed Current occupation: rt handed/ [employer] Current occupational exposures/hazards: No Cognitive needs: No Hearing needs: No Vision needs: Yes Female Reproductive History Menstrual Age of Menarche: 13 Questionnaire PHQ-9 Over the last 2 weeks, how often have you been bothered by any of the following problems? 1. Little interest or pleasure in doing things: not at all 2. Feeling down, depressed, or hopeless: not at all 3. Trouble falling or staying asleep, or sleeping too much: not at all 4. Feeling tired or having little energy: not at all 5. Poor appetite or overeating: not at all 6. Feeling bad about yourself - or that you are a failure or have let yourself or your family down: not at all 7. Trouble concentrating on things, such as reading the newspaper or watching television: not at all 8. Moving or speaking so slowly that other people could have noticed. Or the opposite - being so fidgety or restless that you have been moving around a lot more than usual: not at all 9. Thoughts that you would be better off or of hurting yourself in some way: not at all Total score: 0 Depression Screening Interpretation: Negative Depression Screening Done: Yes 59357 - PHQ-9 Billing: Yes Source: Developed by Drs. George Thao, Elizabeth Qureshi, Kalen Tilley and colleagues, with an educational kae from [employer]. Thrive Questionnaire Date Thrive assessed: 10/28/24 I am a: Patient What is your living situation today?: I have a steady place to live Within the past 12 months, did the food you bought not last and you didn't have the money to get more?: I choose not to answer this question Within the past 12 months, did you worry whether your food would run out before you got money to buy more?: I choose not to answer this question Do you have trouble paying for medicines?: No Do you have trouble getting transportation to medical appointments?: No Do you have trouble paying your heating and electricity bill?: No Do you have trouble taking care of your child, family member or friend?: No Do you have trouble with day-to-day activities such as bathing, preparing meals, shopping, managing finances, etc.?: No Are you currently unemployed and looking for a job?: No Are you interested in more education?: No Please select the resources that you would like help with: None Currently or been in a relationship where the following occur: No concerns reported THRIVE Score: 0 AUDIT C Alcohol Use Questionnaire (AUDIT-C) 1. How often do you have a drink containing alcohol?: Never Total Score: 0 Score Reviewed/Action Taken: No BRANDIE-7 AMB Questionnaire BRANDIE-7 Date BRANDIE - 7 assessed: 10/28/24 Feeling nervous, anxious, or on edge: 0 = Not at all Not being able to stop or control worryin = Not at all Worrying too much about different things: 0 = Not at all Trouble relaxin = Not at all Being so restless that it is hard to sit still: 0 = Not at all Becoming easily annoyed or irritable: 0 = Not at all Feeling afraid as if something awful might happen: 0 = Not at all Total BRANDIE-7 score (0-4 normal; 5-9 mild; 10-14 moderate; 15-21 severe): 0 Source: Developed by Drs. George Thao, Elizabeth Qrueshi, Kalen Tilley and colleagues, with an educational kae from [employer]. BRANDIE-7 Assessment Billing BRANDIE-7 Assessment Tool: BRANDIE-7 Assessment 83275 Review of Systems Const All systems reviewed & are unremarkable except as noted in HPI and below Card Denies chest pain at rest, Denies chest pain with activity, Denies edema, Denies irregular heart rhythm, Denies claudication, Denies dyspnea, Denies dyspnea on exertion, Denies orthopnea, Denies paroxysmal nocturnal dyspnea and Denies slow heart rate Resp Denies cough, Denies dyspnea and Denies dyspnea on exertion Physical exam (Primary Care) Vital Signs: Last Vital Signs BP 122/80 10/28/24 09:44 BMI result Body Mass Index 27.3 Tobacco/Smoking Status: Tobacco use Status Tobacco use date assessed 10/28/24 10/28/24 09:39 Patient Tobacco Use Status Never used Tobacco 10/28/24 09:39 e-Cigarette/Vaping Use Never Used 10/28/24 09:39 PHQ-9: PHQ-9 Score PHQ-9: Total score 0 10/28/24 10:06 Depression Screening Interpretation: Negative Thrive Assessment: Date of Thrive Assessment Date Thrive assessed 10/28/24 10/28/24 09:39 Currently or been in a relationship where the following occur: No concerns reported Neck Neck: Yes normal visual inspection and Yes supple Thyroid: diffusely enlarged Resp Effort & Inspection: normal respiratory effort Auscultation: clear to auscultation bilaterally Cardio Jugular venous distension: no JVD Rate: regular rate Rhythm: regular rhythm Heart sounds: S1 normal heart sound present, S2 normal heart sound present and Murmur heart sound present Extrem General: Yes full ROM Coding Level of Care Code Est Pt Level 4 (91637) Complex EM visit Add On G2211 Diagnoses Thyroid nodule E04.1 Dyspnea on exertion R06.09 TSH elevation R79.89 Migraine with aura G43.109 Additional Codes BRANDIE-7 Assessment Billing - BRANDIE-7 Assessment Tool: BRANDIE-7 Assessment 27221 ([id number]) PHQ-9 - 65207 - PHQ-9 Billing: Yes ([id number]) Time Spent (min) 22 Assessment & Plan Assessment & Plan (1) Thyroid nodule: Code(s): E04.1 - Nontoxic single thyroid nodule Category: Medical (2) Dyspnea on exertion: Code(s): R06.09 - Other forms of dyspnea Category: Medical (3) TSH elevation: Code(s): R79.89 - Other specified abnormal findings of blood chemistry Category: Medical (4) Migraine with aura: Code(s): G43.109 - Migraine with aura, not intractable, without status migrainosus Category: Medical Plan - Arrange for a thyroid ultrasound to assess the nature of thyroid nodules. - Urgent chest CT to evaluate mild streaky opacity and low lung volumes observed in imaging to assess for deeper respiratory causes. - Cardiac ultrasound to evaluate for possible congestive heart-related swelling in the legs. - Monitor respiratory symptoms closely and advise on comfort measures for relief. Patient was informed and verbally consented to the use of an ambient scribe for clinic note documentation during this visit. During the discussion, I emphasized the need for further evaluation of the thyroid nodules through an ultrasound to determine whether they require further intervention or monitoring. I recommended a chest CT scan, marked as urgent, to better analyze the observed lung opacity and assess the nature of respiratory issues. Likely respiratory or cardiac contributions were discussed, with intentions to eliminate any serious abnormalities or identify treatable conditions. The patient was advised on possible necessity for cardiac-related investigations including an ultrasound of the heart due to the swelling in the legs. The importance of monitoring symptoms and timely follow-up was stressed, ensuring the patient understood the rationale and the next steps for each finding. Orders: Orders US thyroid Today E04.1 - Nontoxic single thyroid nodule CA echo transthoracic complete Today R01.1 - Cardiac murmur, unspecified, R06.09 - Other forms of dyspnea Thyroid Stimulating Hormone 11 Months E04.1 - Nontoxic single thyroid nodule Patient Instructions: - Attend scheduled appointments for thyroid and cardiac ultrasounds. - Monitor symptoms of shortness of breath and dry cough; seek immediate care if symptoms worsen. - Follow up promptly for the chest CT scan and consult the results. - Elevate legs as needed to help manage swelling. - Maintain a record of any new symptoms and report them during follow-up visits.
[2024-10-28 09:44] VITALS: BP 122/80; BMI 27.3
== END 2024-10-28 10:15 | disposition home or self-care (01) ==
PROVIDERS: PCP Internal Medicine; Visit Provider Internal Medicine
DX: E04.1 Nontoxic single thyroid nodule (principal); R06.09 Other forms of dyspnea; R79.89 Other specified abnormal findings of blood chemistry; G43.109 Migraine with aura, not intractable, without status migrainosus

== ENCOUNTER → 2024-10-28 09:33 | Outpatient (BNVA) | payer OTHER, SELFPAY | PROVIDERS: PCP Internal Medicine; Visit Provider Internal Medicine | DX: E04.1 Nontoxic single thyroid nodule (principal); R06.09 Other forms of dyspnea; R79.89 Other specified abnormal findings of blood chemistry; G43.109 Migraine with aura, not intractable, without status migrainosus; R01.1 Cardiac murmur, unspecified | CPT/HCPCS: 96127; 99212 ==

== ENCOUNTER → 2024-11-06 14:37 | Outpatient (REF) | payer OTHER, SELFPAY ==
--- NOTE | 2024-11-06 14:39 | CA_ITS ---
Transthoracic Echocardiogram Patient (Last, First, Middle): Leanne Clayton, Gender: Female Date of : 1975 Age: 49 Procedure Date: 11/06/2024 Procedure Type: Transthoracic Echocardiogram Location: OP Height: 167.64 cm Weight: 71.67 kg BSA: 1.81 m2 Heart Rate: bpm BP: 140 / 90 mmHg Shot Hole Driller: TO Referring MD: Marianne Otoole MD Field Consultant: Daniel Martin MD Symptoms: R01.1 - Cardiac murmur, unspecified Study Quality: Adequate ECG Rhythm: Sinus Conclusions: - Normal study Findings Left Ventricle Normal left ventricular size, thickness, and systolic function. The visually estimated ejection fraction is between 60-65%. Spectral Doppler is indicative of a normal filling pattern. Right Ventricle Normal right ventricular cavity size and systolic function. Atria Both atria are normal in size. There is no evidence of interatrial shunt. Aortic Valve Normal aortic valve structure and function. There is no aortic valve stenosis. There is no aortic valve regurgitation. Mitral Valve Normal mitral valve structure and function. There is trace mitral valve regurgitation. There is no mitral valve stenosis. Pulmonic Valve The pulmonic valve is likely normal. There is trace pulmonic valve regurgitation. Tricuspid Valve Normal tricuspid valve structure. There is trace tricuspid valve regurgitation. The right ventricular systolic pressure is normal. The right ventricular systolic pressure is 15 mmHg. Normal right atrial pressure. There is no evidence of pulmonary hypertension. Great Vessels All visible segments of the aorta are normal in size. The pulmonary artery was not well visualized. Venous The inferior vena cava is normal in size and collapses greater than 50% with inspiration. Pericardium/Pleural There is no evidence of pericardial effusion. Prior Study Comparison No prior study available for comparison. Measurements 2D Linear Measurements IVSd: 1.00 0.6-0.9/0.6-1.0 cm LVIDd: 4.44 3.9-5.3/4.2-5.9 cm LVIDd Index: 2.45 2.4-3.2/2.2-3.1 cm/m2 LVIDs: 2.44 2.0-3.6 cm LVPWd: 0.99 0.7-1.1 cm LA Diam: 3.20 2.7-3.8/3.0-4.0 cm LAIDs Index: 1.77 1.5-2.3 cm/m2 LV Mass: 184.81 67-162/88-224 g LV Mass Index: 102.10 43-95/49-115 g/m2 LVOT Diam: 2.10 3.0+(-)1.3 cm 2D Systolic Function EF 4C: 59.60 >55% EF 2C: 66.20 >55% EF BiP: 62.60 >55% Mitral Valve MV Pk E: 0.75 MV PK A: 0.50 MV Decel Time: 200.00 E/A: 1.50 E'Lateral: 10.40 E'Medial: 6.53 E/E' Med: 11.50 E/E' Lat: 7.30 PHT: 59.00 MVA PHT: 3.73 Decel Coffey: 3.77 Aortic Valve AoV Pk [place]: 1.25 AoV Mn [place]: 0.82 AoV VTI: 0.24 AoV Pk Grad: 6.00 Aov Mn Grad: 3.00 MARLEE Cont.VTI: 2.80 LVOT LVOT Pk [place]: 0.96 LVOT Mn [place]: 0.60 LVOT VTI: 0.19 LVOT Pk Grad: 4.00 LVOT Mn Grad: 2.00 LVOT Diam: 2.10 LVOT Area: 3.46 Diastolic Function MV Pk E: 0.75 MV Pk A: 0.50 E/A: 1.50 E'Medial: 6.53 E/E' Med: 11.50 E' Laterial: 10.40 E/E' Lat: 7.30 Right Ventricle TAPSE (mm): 24.00 TVS' [place]: 13.30 Tricuspid Valve TR Pk [place]: 1.72 TR Pk Grad: 12.00 RA Press: 3.00 RVSP: 15.00 Great Vessels Aorta Sinus of Valsalva: 3.40 2.0-3.[address] [place]: 2.79 1.7-3.4 cm Ao Asc: 3.20 2.1-3.4 cm Ao Arch: 3.00 Updated in Other Vendor System with Status of Final Daniel Martin MD electronically signed on 11/08/2024 11:46:59 AM with status of Final
== END ==
LOC: HO.CARD 14:37
PROVIDERS: PCP Internal Medicine; Visit Provider Internal Medicine
DX: E04.1 Nontoxic single thyroid nodule (principal); R06.09 Other forms of dyspnea; R01.1 Cardiac murmur, unspecified
CPT/HCPCS: 76536; 93306

== ENCOUNTER → 2024-11-06 15:43 | Outpatient (BNV) | payer OTHER, SELFPAY | PROVIDERS: PCP Internal Medicine; Visit Provider Radiology Diagnostic Radiology | DX: E04.1 Nontoxic single thyroid nodule (principal) | CPT/HCPCS: 76536 ==

== ENCOUNTER 2024-12-23 15:34 | Outpatient (REF) | payer OTHER, SELFPAY ==
--- NOTE | ~2024-12-23 | CT_ITS ---
CLINICAL HISTORY: R91.8 - Other nonspecific abnormal finding of lung field CT chest with contrast Comparison: None Findings: The heart is normal size. The visualized thyroid and mediastinum are unremarkable. The lungs are clear. Patient is status post cholecystectomy. There is chronic scarring in the upper pole of the left kidney. No acute fractures. IMPRESSION: 1. Unremarkable chest CT. This document has been electronically signed by: Tremayne Zurita MD on 12/25/2024 08:11:13
[2024-12-23] MEDS: iohexoL 350 MG/ML 100 ML INFUS..BTL IV (16:20)
== END 2024-12-23 15:35 | disposition home or self-care (01) ==
LOC: HO.CT 15:34
PROVIDERS: PCP Internal Medicine; Visit Provider Internal Medicine
DX: R91.8 Other nonspecific abnormal finding of lung field (principal); R06.09 Other forms of dyspnea
CPT/HCPCS: 71260; Q9967

== ENCOUNTER → 2024-12-23 15:36 | Outpatient (BNV) | payer OTHER, SELFPAY | PROVIDERS: PCP Internal Medicine; Visit Provider Radiology Diagnostic Radiology | DX: R91.8 Other nonspecific abnormal finding of lung field (principal) | CPT/HCPCS: 71260 ==